=== PATIENT | female | born 1935 | race Caucasian/White ===

== ENCOUNTER 2021-01-07 14:51 | Inpatient (IN) | payer OTHER, MEDICAID ==
[~2021-01-07] VITALS: Ht 149.9 cm; Wt 49.2 kg
--- NOTE | ~2021-01-07 | CON ---
[address] [address] CONSULTATION Name: ORTIZJAY Room: [address] IN M.R.#: [id number] Admission: 01/07/21 Attend Phys: Issa Scott MD Discharge: Date of : 39 Report #: [id number] THIS REPORT FOR: cc: Temo Landers Dimitri DO ~ Khosla, Parveen K. MD DATE OF SERVICE: 01/09/2021 HISTORY OF PRESENT ILLNESS: This is an 85-year-old female patient who was evaluated by me for the stroke. The record in the computer was reviewed and it looks like the patient came to Emergency Room on 01/07/2021 with history suggestive of stroke. She has fallen and she was weak on the left side. 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 I asked her if she hit her head or not and she said no, but history is completely unreliable. Reviewing the record in the Emergency Room looks like this patient was given an aspirin in Emergency Room and she was admitted. From the record, it looks like the patient had an MRI done today along with MRA. 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 She also has a lot of chronic changes. REVIEW OF SYSTEMS: A 14-point review of system was carried out. It is difficult to tell because the patient is so dysarthric that she has virtually complete inability to express herself. She does have a history of hypertension, sepsis and apparently kidney failure. When she came in, her GFR was 47, but now it is 80. When I saw this patient, she was eating. There is some question about seizure disorder, but the patient does not tell me anything and I will try to reach the family. She denies any ENT, cardiac, respiratory, GI, , musculoskeletal, constitutional, dermatological, hematological, psychiatric, throat, allergic symptom associated with present symptomatology. PAST MEDICAL HISTORY: As described above. It is positive for seizure, but I need to talk to the family to see where we are in that regard. FAMILY HISTORY: Negative for early age stroke. SOCIAL HISTORY: As per record, she niece who checks on her, but again I need to reach them to get some more history. PHYSICAL EXAMINATION: Indicates she is alert. She is responsive. She can follow simple command, but she has ____ some dysarthria with no ability to express herself that makes difficult checking memory and fund of knowledge. 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 I cannot tell about hemianopsia. I think she can see in most of the visual [place]rence[place] [address] CONSULTATION Name: JAY ORTIZ Rabia Room: [address] IN [facility]#: [id number] Admission: 01/07/21 Attend Phys: Issa Scott MD Discharge: Date of : 39 Report #: [id number] minimum about 1/5 strength on the left upper extremity. She has very little strength in the left lower extremity. She says she can feel on both sides, but when I do position sense, she does that poorly. She does not take appropriate postures to do the position sense or tone. I tried to do the cerebellar sign. She could not cooperate. Similarly, she did not cooperate with the fundus examination. There is no meningeal sign. There is no carotid bruit. There is no thyroid mass: She is a well-built individual who does not have any dysmorphic features of eyes, ears and face. Her vision and hearing looks adequate. She does not have any edema, cyanosis or jaundice. Imagings reviewed were MRI, MRA. Her white count is 7.7. Vital signs indicated blood pressure of 191/94, respirations 16, pulse is 88, temperature is 97.4. No documented atrial fibrillation, so far. IMPRESSION: Pretty significant cerebrovascular accident in the brainstem with the vessel, especially basilar artery looks patent. It may be from the small vessel disease because she has evidence of other small vessel disease. With all I can tell, she is on aspirin and she never got any Plavix during this hospitalization and she was not on it before. I will give her a loading dose of Plavix after confirming that she did not receive any Plavix and she needs to be on a combination of aspirin and Plavix. Small vessel stroke sometime can become worse and lot of time that lead to complete paralysis before the patient can start recovering and unfortunately, this patient has bilateral stroke and she reaches that spot that will be catastrophic. Therefore, I will give her a loading dose of Plavix and I think at this stage, we just need to mainly watch her. Her sed rate is okay, her LDL is high and she is already on intensive statin therapy and main thing she will need is rehabilitation. Thank you very much for this referral. By: [id number] 29Bladimir Patel MD /nt
[~2021-01-07 14:51] MED LIST: CARVEDILOL6.25 MG PO; CATAPRES-TTS 31 EACH TRANSDERM; CLONIDINE HCL0.3 M3 PO; HYDROCODONE-AP1 EAC6 PO; IBUPROFEN 200200 M1 PO; KEFLEX250 MG PO; KEFLEX500 MG PO; NORCO 5-325 TA1 EACH PO; NORVASC2.5 MG PO; PERCOCET 5-3251 EACH PO; SENNA8.6 MG PO; [UNRECOGNIZED DRUG - REMARK] TOP
[2021-01-07 14:52] VITALS: BP 128/46
[2021-01-07 15:21] LABS: ABSOLUTE EOSINOPHILS 0.1 thou/uL (0.0-0.7); ABSOLUTE LYMPHOCYTES 1.3 thou/uL (0.8-5.3); ABSOLUTE MONOCYTES 0.6 thou/uL (0.0-1.2); ABSOLUTE NEUTROPHILS 4.4 thou/uL (1.6-8.1); BASOPHILS 0.8 %; EOSINOPHILS 0.9 %; HEMOGLOBIN 11.6 gm/dL (12.0-15.0); LYMPHOCYTES 20.2 %; MCH 29.1 pg (26.0-34.0); MCHC 33.1 g/dL (28.0-37.0); MONOCYTES 9.2 %; MPV 7.7 fl. (7.2-11.1); NUCLEATED RBCS 0 /100WBC; PLATELET COUNT* 223 thou/uL (150-400); POLYS 68.9 %; RBC 3.98 mil/uL (4.20-5.00); RDW-CV 15.2 % (10.5-14.5); WBC 6.3 thou/uL (4.0-11.0)
[2021-01-07 15:31] LABS: CALCIUM 9.1 mg/dL (8.5-10.1); CREATININE 1.1 mg/dL (0.6-1.3); POTASSIUM 3.4 mmol/L (3.5-5.1)
[2021-01-07 15:35] LABS: ALBUMIN 3.5 g/dL (3.4-5.0); PROTIME 10.7 Seconds (9.20-11.50); TOTAL BILIRUBIN 0.5 mg/dL (<0.1-1.0); TOTAL PROTEIN 7.1 g/dL (6.4-8.2)
[2021-01-07 19:29] VITALS: BP 140/84
[2021-01-08] VITALS: BP 165/107
--- NOTE | 2021-01-08 02:10 | NUR ---
PATIENT ARRIVED TO UNIT AT APPROXIMATELY 1950. PATIENT ALERT ONLY TO SELF WITH CONFUSION. PATIENT DENIES TAKING ANY MEDICATIONS AT HOME. PATIENT INITIALLY STATED THAT SHE LIVES ALONE IN AN APT BUT THEN STATES THEY SENT HER HERE [facility]. NIGHT PROGRESSED PATIENT BECAME RESTLESS AND AGITATED. PATIENT ATTEMPTED MULTIPLE TIMES TO GET UP FROM BED. PATIENT DIFFICULT TO REDIRECT. PATIENT PLACED ON 1:1 FOR SAFETY
[2021-01-08 04:00] VITALS: BP 182/92
--- NOTE | 2021-01-08 07:20 | NUR ---
CHANGE OF SHIFT REPORT GIVEN PATIENT SEEN IN ROOM AND IN BED ASLEEP ASSUMED PATIENT CARE
[2021-01-08 07:58] LABS: CHOLESTEROL 186 mg/dL (<200); HDL CHOLESTEROL 54 mg/dL (>40); LDL CHOLESTEROL 117 mg/dL (<100); TC:HDL 3.4 Ratio (Not establshd); TRIGLYCERIDE 76 mg/dL (<150); VLDL 15 mg/dL (<40)
[2021-01-08 08:00] VITALS: BP 185/90
[2021-01-08 08:09] LABS: SERUM ASSESSMENT Clear
[2021-01-08 12:00] VITALS: BP 192/90
[2021-01-08 16:00] VITALS: BP 200/94
--- NOTE | 2021-01-08 17:16 | NUR ---
DAVION ALAS REQUESTS NO CLINICAL INFORMATION BE GIVEN TO HER FRIEND SHILA (?SPELLING AND LAST NAME) [facility]. FRIEND SHILA "COACHES HER" AND SEEMS TO BE "TAKING HER MONEY." SHILA IS ALLOW TO VISIT ON SATURDAY, AND PATIENT IS ALLOWED TO TALK WITH SHILA.
[2021-01-09 00:37] VITALS: BP 185/99
--- NOTE | 2021-01-09 02:33 | NUR ---
ASSUMED CARE OF PATIENT IN 1930. PATIENT CONTINUES TO HAVE SITTER FOR SAFETY. PATIENT IS RESTLESS AND CALLS OUT RANDOMLY. PATIENT CONTINUES TO BE IMPULSIVE AND DOES NOT USE CALL LIGHT APPROPRIATELY. NIH SCORE THIS SHIFT REMAINS AN 8
[2021-01-09 04:11] LABS: CALCIUM 9.4 mg/dL (8.5-10.1); CREATININE 0.7 mg/dL (0.6-1.3); MAGNESIUM 1.9 mg/dL (1.8-2.4); POTASSIUM 3.2 mmol/L (3.5-5.1)
[2021-01-09 04:15] LABS: HEMATOCRIT 39.9 % (37.0-47.0); HEMOGLOBIN 13.2 gm/dL (12.0-15.0); MCH 28.9 pg (26.0-34.0); MCV 87.4 fL (80.0-100.0); MPV 7.7 fl. (7.2-11.1); RBC 4.57 mil/uL (4.20-5.00); WBC 7.7 thou/uL (4.0-11.0)
[2021-01-09 04:16] VITALS: BP 161/104
--- NOTE | 2021-01-09 09:39 | EKG ---
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
--- NOTE | 2021-01-09 11:33 | NUR ---
CM SPOKE TO THE PT TO DISCUSS CM ASSESSMENT. RESTING WITH EYES CLOSED AT THIS TIME. PT CURRENTLY HAS 1:1 SITTER FOR SAFETY. CM CONTACTED PT'S NIECE EVETTE TO DISCUSS CM ASSESSMENT. PT'S NIECE INFORMS THAT THE PT CURRENTLY RESIDES AT [facility] ([facility] ALONE. PT NORMALLY AMBULATES INDEPENDENTLY WITH 0 DME. PT HAS 0 HX OF HH. PT HAS PAST HX OF SNF AT [facility]. PT'S NIECE DOES ALL GROCERY SHOPPING, CASE LOADER OPERATOR, LAUNDRY, ASSIST WITH BATHING, AND PROVIDES TRANSPORTATION TO APPOINTMENTS. PT'S SON MANAGES HER FINANCES AND PAYS HER BILLS FOR HER. CM WILL REMAIN AVAILABLE TO ASSIST AND FOLLOW NEEDED.
[2021-01-09 11:37] VITALS: BP 170/99
--- NOTE | 2021-01-09 12:47 | 2DMMODE ---
[place] [address] 2 D/M-MODE ECHOCARDIOGRAM Name: ORTIZJAY Room: [address] IN .R.#: [id number] Admission: 01/07/21 Attend Phys: Issa Scott, Discharge: Date of : 39 Date of Service: 01/09/21 1247 Report #: [id number] THIS REPORT FOR: cc: Temo Landers,Temo Guzman,Prosper Locke MD [facility] ~ APPROVED REPORT Study performed: 01/09/2021 11:03:36 EXAM: Comprehensive 2D, Doppler, color-flow Echocardiogram, and bubble study Patient Location: Bedside BSA: 1.48 HR: 59 bpm BP: 161/104 mmHg Other Information Study Quality: Fair Technically limited study due to inability to position patient. Indications CVA/TIA 2D Dimensions IVSd: 14.73 (7-11mm) LVOT Diam: 17.28 (18-24mm) LVDd: 32.94 mm PWd: 8.72 (7-11mm) Ascending Ao: 26.63 (22-36mm) LVDs: 22.70 (25-40mm) Aortic Root: 26.32 mm Aortic Valve AoV Peak William.: 1.06 m/s AO Peak Gr.: 4.45 mmHg LVOT Max P.61 mmHg AO Mean Gr.: 2.58 mmHg LVOT Mean P.96 mmHg LVOT Max V: 0.95 m/s AO V2 VTI: 18.97 cm LVOT Mean V: 0.65 m/s GEMA (VTI): 2.35 cm2 LVOT V1 VTI: 19.03 cm Mitral Valve E/A Ratio: 0.43 MV Decel. Time: 231.08 ms MV E Max William.: 0.48 m/[place] [address] 2 D/M-MODE ECHOCARDIOGRAM Name: JAY ORTIZ Room: [address] IN [facility]#: [id number] Admission: 01/07/21 Attend Phys: Issa Scott, Discharge: Date of : 39 Date of Service: 01/09/21 1247 Report #: [id number] MV PHT: 67.01 ms MVA (PHT): 3.28 cm2 TDI E/Lateral E': 6.86 E/Medial E': 16.00 Medial E' William.: 0.03 m/s Lateral E' William.: 0.07 m/s Pulmonary Valve PV Peak William.: 1.12 m/s PV Peak Gr.: 5.00 mmHg Left Ventricle The left ventricle is normal size. There is normal LV segmental wall motion. There is normal left ventricular wall thickness. Left ventricular systolic function is normal. The left ventricular ejection fraction is within the normal range. LVEF is 60-65%. Grade I - abnormal relaxation pattern. Right Ventricle The right ventricle is normal size. The right ventricular systolic function is normal. Atria The left atrium size is normal. Injection of bubbles is not conclusive due to poor image quality. The right atrium size is normal. Aortic Valve The aortic valve is normal in structure. No aortic regurgitation is present. There is no aortic valvular stenosis. Mitral Valve The mitral valve is normal in structure. Trace mitral regurgitation. No evidence of mitral valve stenosis. Tricuspid Valve The tricuspid valve is normal in structure. There is no tricuspid valve regurgitation noted. Pulmonic Valve The pulmonary valve is normal in structure. There is no pulmonic valvular regurgitation. Great Vessels The aortic root is normal in size. IVC [place] [address] 2 D/M-MODE ECHOCARDIOGRAM Name: ORTIZJAY Room: [address]#: [id number] Admission: 01/07/21 Attend Phys: Issa Scott, Discharge: Date of : 39 Date of Service: 01/09/21 1247 Report #: [id number] Pericardium There is no pericardial effusion. <Conclusion> Injection of bubbles is not conclusive due to poor image quality. Left ventricular systolic function is normal. The left ventricular ejection fraction is within the normal range. <ELECTRONICALLY SIGNED> By: Prosper Whaley MD, FACC 01/09/21 1247 46 124 Prosper Whaley MD, FACC /INF
[2021-01-09 15:49] VITALS: BP 191/94
--- NOTE | 2021-01-09 19:32 | NUR ---
ASSUMED PT CARE AT 0730. PT WITH SAFETY MEASURES IN PLACE AND A SITTER. PT FORGETS SHE IS UNABLE TO AMBULATE AT THIS TIME. PT REQUIRES ASSIST OF 2 . DIET CHANGED TO PUREED AND MEDS TO BE CRUSHED. ASSESSMENT COMPLETED AND MEDICATIONS ADMINISTERED ORDERED. PT NIH 8.
[2021-01-09 20:00] VITALS: BP 188/92
[2021-01-10 00:34] VITALS: BP 171/88
--- NOTE | 2021-01-10 04:58 | NUR ---
PATIENT SLEPT WELL DURING THIS SHIFT. PT ABLE TO TAKE MEDS CRUSHED IN APPLESAUCE. PT WITH FLUIDS INFUSING IN LT FOREARM. PT IN SR ON RN [facility]. PT WITH LT SIDED FACIAL DROOP. PT IS ON ROOM AIR. PT INCONTENT OF URINE. FREQUENTLY USED ITEMS AND CALL LIGHT WITHIN REACH. SIDERAILS UPX2 AND BED ALARM ON. PT WITH 1:1 SITTER ORDERED FOR PT SAFETY.
[2021-01-10 05:17] VITALS: BP 170/89
[2021-01-10 08:49] VITALS: BP 160/75
[2021-01-10 12:00] VITALS: BP 182/85
[2021-01-10 16:00] VITALS: BP 167/77
--- NOTE | 2021-01-10 17:20 | NUR ---
PT.STILL WITH 1:1 SITTER TODAY BUT MUCH CALMER. THERAPY TRIAGED PT.TODAY. EDNA GONZALEZ/ARU EVALUATED PT.TODAY.
--- NOTE | 2021-01-10 17:46 | NUR ---
ASSUMED PT CARE AT 0730. PT IS ALERT, WITH PERIODS OF CONFUSION. PT HAD SWALLOW STUDY AND DIET CHANGED TO PUREED AND THICKENED LIQUIDS. PT TOLERATING PO MEDS WITH NECTAR THICKENED APPLE JUICE. UP WITH ASSIST X1. ASSESSED AND PT HAS NO C/O ANY DISCOMFORT OR PAIN. PT REQUESTING TO GO HOME. MEDICATIONS ADMINISTERED ORDERED. PT VISITING WITH NIECE AT THIS TIME. K+ 4.0.
[2021-01-10 19:50] VITALS: BP 187/88
[2021-01-11] VITALS (8 sets, daily range): BP systolic 137–208; BP diastolic 55–94
[2021-01-11] MEDS ORDERED: HYDRALAZINE 5050 MG PO (09:20)
[2021-01-11] MEDS ORDERED: LIPITOR40 MG PO (09:20)
[2021-01-11] MEDS ORDERED: HYDROCHLOROTHIA25 M1 PO (09:20)
[2021-01-11] MEDS ORDERED: ADULT LOW DOSE81 MG PO (09:20)
[2021-01-11] MEDS ORDERED: CLOPIDOGREL75 MG PO (09:20)
[2021-01-11] MEDS ORDERED: LISINOPRIL20 MG PO (09:20)
--- NOTE | 2021-01-11 13:32 | NUR ---
CM INFORMED DURING PRIME ROUNDING OF THE PLAN OF CARE FOR THE PT. PHYSICIAN INFORMS THAT THE PT IS MEDICALLY STABLE FOR D/C TO ARU. ARU CONSULTED AND WILL NEED TO OBTAIN INSURANCE AUTH IN ORDER TO BE ABLE TO ACCEPT PT. CM WILL REMAIN AVAILABLE TO ASSIST AND FOLLOW NEEDED.
[2021-01-12 04:37] VITALS: BP 155/86
[2021-01-12] MEDS ORDERED: CARVEDILOL12.5 MG PO (07:37)
[2021-01-12 08:00] VITALS: BP 129/70
[2021-01-12 12:23] VITALS: BP 161/82
--- NOTE | 2021-01-12 12:54 | NUR ---
CM INFORMED DURING PRIME ROUNDING OF THE PLAN OF CARE FOR THE PT. PT MEDICALLY STABLE FOR TRANSFER TO IN ARU. PT NOW OFF 1:1. ARU STARTED INSURANCE AUTH AND IS AWAITING APPROVAL. CM WILL REMAIN AVAILABLE TO ASSIST AND FOLLOW NEEDED.
[2021-01-12 16:09] VITALS: BP 110/41
[2021-01-12 23:47] VITALS: BP 137/58
[2021-01-13 04:00] VITALS: BP 120/53
[2021-01-13 08:00] VITALS: BP 128/56
[2021-01-13 10:44] LABS: HEMOGLOBIN 11.3 gm/dL (12.0-15.0); MCH 28.7 pg (26.0-34.0); MCHC 32.4 g/dL (28.0-37.0); MCV 88.4 fL (80.0-100.0); MPV 7.9 fl. (7.2-11.1); RBC 3.95 mil/uL (4.20-5.00); RDW-CV 15.4 % (10.5-14.5); WBC 7.1 thou/uL (4.0-11.0)
[2021-01-13 10:50] LABS: CALCIUM 8.9 mg/dL (8.5-10.1); CREATININE 1.3 mg/dL (0.6-1.3); POTASSIUM 3.6 mmol/L (3.5-5.1)
--- NOTE | 2021-01-13 12:06 | NUR ---
CM INFORMED DURING PRIME ROUNDING OF THE PLAN OF CARE FOR THE PT. [facility] AUTH PENDING INSURANCE AUTH. PLAN FOR PT TO TRANSFER TO INPT REHAB IF INSUARANCE AUTH IS APPROVED. CM WILL REMAIN AVAILABLE TO ASSIST AND FOLLOW NEEDED.
[2021-01-13 12:26] VITALS: BP 86/59
[2021-01-13 16:03] VITALS: BP 125/60
--- NOTE | 2021-01-13 18:59 | NUR ---
ASSUMED CARE OF PT 0700. ASSESSMENTS COMPLETED, SEE CHART FOR DETAILS. VS CHARTED, NO S/S DISTRESS. PO FLUIDS ENCOURAGED. REMAINS ON TELE MONITOR. WILL CONTINUE TO MONITOR.
[2021-01-13 20:00] VITALS: BP 137/61
[2021-01-14 00:10] VITALS: BP 125/62
[2021-01-14 04:39] LABS: HEMATOCRIT 32.3 % (37.0-47.0); HEMOGLOBIN 10.7 gm/dL (12.0-15.0); MCH 29.1 pg (26.0-34.0); MCHC 33.1 g/dL (28.0-37.0); MCV 87.8 fL (80.0-100.0); MPV 8.1 fl. (7.2-11.1); RBC 3.68 mil/uL (4.20-5.00); WBC 7.4 thou/uL (4.0-11.0)
[2021-01-14 04:51] LABS: CALCIUM 8.6 mg/dL (8.5-10.1); CREATININE 1.2 mg/dL (0.6-1.3); MAGNESIUM 1.9 mg/dL (1.8-2.4); POTASSIUM 3.3 mmol/L (3.5-5.1)
[2021-01-14 04:55] VITALS: BP 125/66
--- NOTE | 2021-01-14 06:05 | NUR ---
ASSUMED PT CARE AT APPROX. 1930. PT IS A/O TO SELF. PT HAD SOME CONFUSION THIS EVENING. PT WANTED TO MOVE TO A DIFFERENT ROOM AND GET HER CAT. PT WAS ANXIOUS AND CLIMBING OUT OF BED. MEDICATIONS ADMINISTERED PRESCRIBED FOR ANXIETY. NIH SCORE WAS 9. PT HAS LEFT SIDE WEAKNESS AND LEFT SIDED FACIAL DROOPING. PT RESTED MOST OF THE NIGHT. LABS REVIEWED. HOURLY ROUNDS COMPLETE CHARTED. CALL LIGHT WITHIN REACH. FALL PRECAUTIONS IN PLACE FOR SAFETY. WILL CONT. TO MONITOR.
[2021-01-14 09:10] VITALS: BP 116/56
[2021-01-14 11:56] VITALS: BP 83/41
--- NOTE | 2021-01-14 16:58 | NUR ---
ASSUMED PT CARE AT 0730. PT IS ALERT AND COOPERATIVE. ASSESSMENT COMPLETED. PT REQUIRES MAX ASSIST OF 1 TO BSC. PT VOICES NO CONCERNS AT THIS TIME. MEDICATIONS ADMINISTERED ORDERED. SAFETY MEASURES IN PLACE. PT NIECE HERE TO VISIT. PLAN FOR PT TO DISCHARGE TO REHAB WHEN ABLE.
[2021-01-14 20:15] VITALS: BP 114/57
[2021-01-15 00:18] VITALS: BP 113/68
[2021-01-15 05:30] VITALS: BP 118/57
--- NOTE | 2021-01-15 06:54 | NUR ---
ASSUMED PT CARE AT 1930. PT IS A/O X2. VSS. PT IS SR ON THE TELE MONITOR. PT'S NIH SCORE WAS A 9. PT HAS LEFT SIDED WEAKNESS. PT HAD A BROWN, FORMED BM. PT CONTINUES THE NECTAR THICK LIQUIDS AND PUREED DIET. PT HAS BEEN RESTING DURING THE NOC. WILL CONT. TO MONITOR. LABS REVIEWED. HOURLY ROUNDS COMPLETE CHARTED. MEDICATIONS ADMINISTERD PRESCRIBED.
[2021-01-15 09:00] VITALS: BP 107/51
[2021-01-15 12:00] VITALS: BP 110/42
[2021-01-15 16:00] VITALS: BP 115/56
--- NOTE | 2021-01-15 16:01 | NUR ---
ASSUMED PT CARE AT 0730. PT IS ALERT, COOPERATIVE AND ANSWERS QUESTIONS APPROPRIATELY.NIH IS A 9. ASSESSMENT COMPLETED AND NO CHANGE IN STATUS FROM YESTERDAY. PT UP TO BSC WITH ASSIST X1. K+ WAS 3.3 THIS AM, PROTOCOL INITIATED AND NEW LAB VALUE THIS AFTERNOON IS 3.8. SAFETY MEASURES IN PLACE. PT ABLE TO USE CALL LIGHT TO LET STAFF KNOW OF NEEDS. ROUNDING COMPLETED EVERY HOUR AND PT ASSISTED WITH REPOSITIONING Q2HR AND PRN TO PROMOTE COMFORT.
[2021-01-15 19:30] VITALS: BP 132/57
[2021-01-16 00:09] VITALS: BP 125/51
[2021-01-16 04:22] LABS: HEMATOCRIT 31.5 % (37.0-47.0); HEMOGLOBIN 10.4 gm/dL (12.0-15.0); MCH 29.3 pg (26.0-34.0); MCHC 33.1 g/dL (28.0-37.0); MCV 88.5 fL (80.0-100.0); MPV 8.1 fl. (7.2-11.1); RBC 3.56 mil/uL (4.20-5.00); RDW-CV 15.4 % (10.5-14.5); WBC 7.5 thou/uL (4.0-11.0)
[2021-01-16 04:48] LABS: CALCIUM 9.5 mg/dL (8.5-10.1); CREATININE 1.1 mg/dL (0.6-1.3); POTASSIUM 4.2 mmol/L (3.5-5.1)
[2021-01-16 04:51] VITALS: BP 157/62
--- NOTE | 2021-01-16 04:58 | NUR ---
PT SLEPT ON AND OFF THIS SHIFT. ASSESSMENT DOCUMENTED. MEDS GIVEN PER E-DEC. IV PATENT. NO REPORTS OF PAIN. FALL PRECAUTIONS IN PLACE. WILL CONTINUE WITH PLAN OF CARE.
[2021-01-16 08:00] VITALS: BP 134/83
--- NOTE | 2021-01-16 10:39 | NUR ---
ASSUMED CARE OF PATIENT THIS AM AT 0730. PATIENT IS ALERT AND ORIENTED X 2. SHE DENIES PAIN. PATIENT SET UP FOR MEALS AND ASSISTED WITH ADLS THROUGHOUT THE DAY. PLANS TO DISCHARGE TO REHAB. BED ALARM IS ON AND CALL LIGHT IS IN REACH.
--- NOTE | 2021-01-16 13:25 | NUR ---
CM INFORMED DURING PRIME ROUNDING OF THE PLAN OF CARE FOR THE PT. PLAN FOR PT TO TRANSFER TO INPT ACUTE REHAB UNIT TODAY. PT'S INSURANCE HAS APPROVED INPT REHAB. CM SPOKE TO THE PT AND PT'S NIECE/DPRICHARD ALAS AND SHE IS IN AGREEMENT WITH THIS PLAN. CM WILL REMAIN AVAILABLE TO ASSIST AND FOLLOW NEEDED.
== END 2021-01-16 11:51 | DRG 64 ==
LOC: M.ERS 14:51 → M.TBA-ER 17:03 → M.2W 17:03
PROVIDERS: Emergency Medicine Emergency Medical Services; Family Medicine; ADMIT Internal Medicine; ATTEND Internal Medicine
DX: I63.89 Other cerebral infarction (principal); G92 Toxic encephalopathy; G81.94 Hemiplegia, unspecified affecting left nondominant side; R73.03 Prediabetes; G40.909 Epilepsy, unspecified, not intractable, without status epilepticus; E87.6 Hypokalemia; R13.10 Dysphagia, unspecified; I12.9 Hypertensive chronic kidney disease with stage 1 through stage 4 chronic kidney disease, or unspecified chronic kidney disease; N18.30 Chronic kidney disease, stage 3 unspecified; Z20.822 Contact with and (suspected) exposure to COVID-19; Z90.710 Acquired absence of both cervix and uterus; Z79.899 Other long term (current) drug therapy

== ENCOUNTER 2021-01-16 11:45 | Inpatient (IN) | payer OTHER, MEDICAID ==
[~2021-01-16] VITALS: Ht 121.9 cm; Wt 49.9 kg
[~2021-01-16 11:45] MED LIST changes: +ADULT LOW DOSE81 MG PO; +CARVEDILOL12.5 MG PO; +CLOPIDOGREL75 MG PO; +HYDRALAZINE 5050 MG PO; +HYDROCHLOROTHIA25 M1 PO; +LIPITOR40 MG PO; +LISINOPRIL20 MG PO
[2021-01-16 13:49] VITALS: BP 145/67
[2021-01-16 19:00] VITALS: BP 168/72
[2021-01-17 04:47] LABS: HEMATOCRIT 32.3 % (37.0-47.0); HEMOGLOBIN 10.6 gm/dL (12.0-15.0); MCH 29.1 pg (26.0-34.0); MCHC 32.9 g/dL (28.0-37.0); MCV 88.2 fL (80.0-100.0); MPV 8.3 fl. (7.2-11.1); RBC 3.66 mil/uL (4.20-5.00); RDW-CV 15.4 % (10.5-14.5); WBC 8.5 thou/uL (4.0-11.0)
[2021-01-17 04:54] LABS: CALCIUM 8.9 mg/dL (8.5-10.1); CREATININE 1.1 mg/dL (0.6-1.3); POTASSIUM 3.9 mmol/L (3.5-5.1)
[2021-01-17 07:50] VITALS: BP 154/66
[2021-01-17 10:34] LABS: URINE BILIRUBIN NEGATIVE (Negative); URINE BLOOD TRACE (Negative); URINE CLARITY CLEAR; URINE COLOR YELLOW; URINE GLUCOSE-RANDOM NEGATIVE (Negative); URINE KETONES NEGATIVE (Negative); URINE NITRITE-REFLEX NEGATIVE (Negative); URINE PROTEIN NEGATIVE (Negative); URINE SPECIFIC GRAVITY 1.025 (1.005-1.030); URINE UROBILINOGEN 0.2 E.U./dl (0.2-1.0)
[2021-01-17 10:37] LABS: URINE LEUKOCYTES-REFLEX 3+ (Negative)
[2021-01-17 10:45] LABS: BACTERIA-REFLEX >30 Many /HPF (None Seen); CASTS None Seen /LPF (None Seen); CRYSTALS None Seen /LPF (None Seen); MUCUS 0-3 Light strn/LPF (None Seen); SQUAMOUS 0-3 Few /LPF (0-3); URINE RBC 0-2 Rare /HPF (0-2)
[2021-01-17 19:00] VITALS: BP 151/79
[2021-01-18 05:11] LABS: HEMATOCRIT 29.2 % (37.0-47.0); HEMOGLOBIN 9.9 gm/dL (12.0-15.0); MCH 29.4 pg (26.0-34.0); MCHC 33.8 g/dL (28.0-37.0); MPV 8.1 fl. (7.2-11.1); RBC 3.36 mil/uL (4.20-5.00); WBC 8.1 thou/uL (4.0-11.0)
[2021-01-18 05:19] LABS: CALCIUM 8.5 mg/dL (8.5-10.1); POTASSIUM 3.3 mmol/L (3.5-5.1)
[2021-01-18 08:00] VITALS: BP 137/63
[2021-01-18 20:20] VITALS: BP 161/70
[2021-01-19 08:19] VITALS: BP 119/61
[2021-01-19 08:52] LABS: POTASSIUM 3.3 mmol/L (3.5-5.1)
[2021-01-19 09:56] VITALS: BP 119/61
[2021-01-19 10:47] LABS: HEMATOCRIT 33.6 % (37.0-47.0); MCH 28.7 pg (26.0-34.0); MCHC 32.8 g/dL (28.0-37.0); MCV 87.4 fL (80.0-100.0); MPV 8.6 fl. (7.2-11.1); RBC 3.84 mil/uL (4.20-5.00); RDW-CV 14.9 % (10.5-14.5); WBC 8.5 thou/uL (4.0-11.0)
== END 2021-01-19 14:13 | disposition short-term general hospital (02) | DRG 56 ==
LOC: M.REH 11:45
PROVIDERS: Internal Medicine; ADMIT Physical Medicine & Rehabilitation; ATTEND Physical Medicine & Rehabilitation
DX: I69.354 Hemiplegia and hemiparesis following cerebral infarction affecting left non-dominant side (principal); G92 Toxic encephalopathy; N39.0 Urinary tract infection, site not specified; I69.322 Dysarthria following cerebral infarction; I12.9 Hypertensive chronic kidney disease with stage 1 through stage 4 chronic kidney disease, or unspecified chronic kidney disease; R33.9 Retention of urine, unspecified; G40.909 Epilepsy, unspecified, not intractable, without status epilepticus; N18.31 Chronic kidney disease, stage 3a; E87.6 Hypokalemia; R13.10 Dysphagia, unspecified; M19.90 Unspecified osteoarthritis, unspecified site; D64.9 Anemia, unspecified; E11.22 Type 2 diabetes mellitus with diabetic chronic kidney disease; Z90.710 Acquired absence of both cervix and uterus

== ENCOUNTER 2021-01-19 14:20 | Inpatient (IN) | payer OTHER, MEDICAID ==
[~2021-01-19] VITALS: Ht 119.4 cm; Wt 56.0 kg
[2021-01-19 15:00] VITALS: BP 135/60
[2021-01-19 15:23] LABS: ABSOLUTE BASOPHILS 0.1 thou/uL (0.0-0.2); ABSOLUTE EOSINOPHILS 0.1 thou/uL (0.0-0.7); ABSOLUTE LYMPHOCYTES 1.1 thou/uL (0.8-5.3); ABSOLUTE MONOCYTES 0.9 thou/uL (0.0-1.2); ABSOLUTE NEUTROPHILS 6.9 thou/uL (1.6-8.1); BASOPHILS 0.6 %; EOSINOPHILS 1.5 %; MCHC 33.3 g/dL (28.0-37.0); MONOCYTES 10.3 %; MPV 8.3 fl. (7.2-11.1); NUCLEATED RBCS 0 /100WBC; PLATELET COUNT* 279 thou/uL (150-400); POLYS 75.6 %; RBC 3.44 mil/uL (4.20-5.00); RDW-CV 15.1 % (10.5-14.5); WBC 9.1 thou/uL (4.0-11.0)
[2021-01-19 15:39] LABS: ALBUMIN 2.9 g/dL (3.4-5.0); CALCIUM 8.6 mg/dL (8.5-10.1); POTASSIUM 3.7 mmol/L (3.5-5.1); TOTAL BILIRUBIN 0.7 mg/dL (<0.1-1.0); TOTAL PROTEIN 6.8 g/dL (6.4-8.2)
--- NOTE | 2021-01-19 15:47 | EKG ---
[place] [address] ELECTROCARDIOGRAM REPORT Name: ORTIZJAY Room: [address] ADM IN [facility]#: [id number] Admission: 01/19/21 Attend Phys: Gilberto Paige Discharge: Date of : 39 Date of Service: 01/19/21 1413 Report #: [id number] THIS REPORT FOR: //name// [facility] Test Date: 2021-01-19 Test Time: 14:13:33 Pat Name: JAY ORTIZ Department: Room: [address] Gender: F Drama Therapist: : 1935 Requested By: Gilberto Paige Order Number: [id number] Frank MD: Prosper Whaley Measurements Intervals [place] Rate: 60 P: 54 SD: 200 QRS: 23 QRSD: 90 T: 57 QT: 454 QTc: 454 Interpretive Statements Sinus rhythm Compared to ECG 01/07/2021 14:58:42 No significant changes Electronically Signed On 01-19-2021 15:47:21 CDT by Prosper Whaley [email or web address] <ELECTRONICALLY SIGNED> By: Prosper Whaley MD, [facility] 01/19/21 1547 1413 1413 Prosper Whaley MD, [facility] /EPI
[2021-01-19 16:00] VITALS: BP 129/64
[2021-01-19 16:33] LABS: BE 0.5 mmol/L (-2 to +3); PCO2 33.1 mmHg (35.0-45.0); pH 7.472 (7.340-7.450)
[2021-01-19 16:38] LABS: PO2 130.3 mmHg (75.0-100.0)
[2021-01-19 17:00] VITALS: BP 120/82
[2021-01-19 18:00] VITALS: BP 148/60
[2021-01-20] VITALS (25 sets, daily range): BP systolic 102–152; BP diastolic 39–78
[2021-01-20 04:35] LABS: HEMATOCRIT 27.4 % (37.0-47.0); HEMOGLOBIN 9.3 gm/dL (12.0-15.0); MCH 29.4 pg (26.0-34.0); MCHC 34.1 g/dL (28.0-37.0); MCV 86.2 fL (80.0-100.0); RBC 3.17 mil/uL (4.20-5.00); RDW-CV 14.8 % (10.5-14.5); WBC 9.5 thou/uL (4.0-11.0)
[2021-01-20 04:59] LABS: ALBUMIN 2.5 g/dL (3.4-5.0); ALKALINE PHOSPHATASE 107 U/L (46-116); ANION GAP 7 mmol/L (7-16); BUN 29 mg/dL (7-18); CALCIUM 8.8 mg/dL (8.5-10.1); CHLORIDE 100 mmol/L (98-107); CHOLESTEROL 90 mg/dL (<200); CO2 29 mmol/L (21-32); CREATININE 1.2 mg/dL (0.6-1.3); GLUCOSE 138 mg/dL (70-99); HDL CHOLESTEROL 38 mg/dL (>40); LDL CHOLESTEROL 47 mg/dL (<100); POTASSIUM 3.8 mmol/L (3.5-5.1); SGOT 13 U/L (15-37); SGPT 14 U/L (30-65); SODIUM 136 mmol/L (136-145); TC:HDL 2.4 Ratio (Not establshd); TOTAL BILIRUBIN 0.7 mg/dL (<0.1-1.0); TOTAL PROTEIN 6.2 g/dL (6.4-8.2); TRIGLYCERIDE 29 mg/dL (<150); VLDL 6 mg/dL (<40)
[2021-01-20 05:35] LABS: BE 3.1 mmol/L (-2 to +3); PCO2 33.9 mmHg (35.0-45.0); PO2 77.4 mmHg (75.0-100.0); pH 7.502 (7.340-7.450)
[2021-01-20 05:41] LABS: SERUM ASSESSMENT CLEAR
--- NOTE | 2021-01-20 09:58 | EKG ---
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
--- NOTE | 2021-01-20 15:26 | 2DMMODE ---
[place] [address] 2 D/M-MODE ECHOCARDIOGRAM Name: JAY ORTIZ Rabia Room: [address] IN [facility]#: [id number] Admission: 01/19/21 Attend Phys: Gilberto Paige Discharge: Date of : 39 Date of Service: 01/20/21 1526 Report #: [id number] THIS REPORT FOR: cc: Temo Landers,Temo Guzman,Prosper Locke MD [facility] ~ APPROVED REPORT Study performed: 01/20/2021 13:58:12 EXAM: Limited 2D Echocardiogram Patient Location: In-Patient Room #: [facility] Status: routine BSA: 1.26 HR: 88 bpm BP: 123/51 mmHg Rhythm: NSR Other Information Study Quality: Good Indications cardiac arrest Left Ventricle The left ventricle is normal size. There is normal LV segmental wall motion. There is normal left ventricular wall thickness. The left ventricular systolic function is normal. The left ventricular ejection fraction is within the normal range. LVEF is 60-65%. Right Ventricle The right ventricle is normal size. The right ventricular systolic function is normal. Atria The left atrium size is normal. The right atrium size is normal. Aortic Valve Mild aortic valve sclerosis. Mitral Valve The mitral valve [place] [address] 2 D/M-MODE ECHOCARDIOGRAM Name: JAY ORTIZ Room: [address] IN .R.#: [id number] Admission: 01/19/21 Attend Phys: Gilberto Paige Discharge: Date of : 39 Date of Service: 01/20/21 1526 Report #: [id number] Tricuspid Valve The tricuspid valve is normal in structure. Pulmonic Valve The pulmonary valve is normal in structure. Great Vessels The aortic root is normal in size. IVC is normal in size and collapses >50% with inspiration. Pericardium There is no pericardial effusion. <Conclusion> LVEF is 60-65%. Mild aortic valve sclerosis. There is no pericardial effusion. <ELECTRONICALLY SIGNED> By: Prosper Whaley MD, FACC 01/20/21 1526 1526 25 Prosper Whaley MD, FACC /INF
[2021-01-21] VITALS (12 sets, daily range): BP systolic 95–146; BP diastolic 40–84
[2021-01-21 02:06] LABS: GLYCOHEMOGLOBIN (HGB A1C) 6.1 % (4.8-5.6)
[2021-01-21 02:47] LABS: HEMATOCRIT 29.2 % (37.0-47.0); HEMOGLOBIN 9.8 gm/dL (12.0-15.0); MCH 29.3 pg (26.0-34.0); MCHC 33.6 g/dL (28.0-37.0); MCV 87.3 fL (80.0-100.0); MPV 7.6 fl. (7.2-11.1); RBC 3.34 mil/uL (4.20-5.00); RDW-CV 14.7 % (10.5-14.5); WBC 9.5 thou/uL (4.0-11.0)
[2021-01-21 02:56] LABS: CALCIUM 9.5 mg/dL (8.5-10.1); CREATININE 1.1 mg/dL (0.6-1.3); POTASSIUM 3.5 mmol/L (3.5-5.1)
[2021-01-21] MEDS ORDERED: LEVOFLOXACIN750 MG PO (09:51)
[2021-01-22 00:07] VITALS: BP 91/48
[2021-01-22 04:31] VITALS: BP 91/44
[2021-01-22 05:52] LABS: CALCIUM 7.9 mg/dL (8.5-10.1); CREATININE 1.5 mg/dL (0.6-1.3); POTASSIUM 3.2 mmol/L (3.5-5.1)
[2021-01-22 06:04] LABS: HEMATOCRIT 26.2 % (37.0-47.0); HEMOGLOBIN 8.8 gm/dL (12.0-15.0); MCHC 33.5 g/dL (28.0-37.0); MCV 86.6 fL (80.0-100.0); RBC 3.02 mil/uL (4.20-5.00); RDW-CV 15.3 % (10.5-14.5); WBC 8.9 thou/uL (4.0-11.0)
[2021-01-22 08:00] VITALS: BP 104/52
[2021-01-22 11:45] VITALS: BP 99/45
[2021-01-22 16:00] VITALS: BP 138/60
[2021-01-22 20:30] VITALS: BP 107/58
[2021-01-23] VITALS: BP 133/59
[2021-01-23 04:00] VITALS: BP 121/47
[2021-01-23 06:01] LABS: HEMATOCRIT 26.6 % (37.0-47.0); HEMOGLOBIN 8.8 gm/dL (12.0-15.0); MCV 87.6 fL (80.0-100.0); MPV 7.6 fl. (7.2-11.1); RBC 3.03 mil/uL (4.20-5.00); RDW-CV 15.5 % (10.5-14.5)
[2021-01-23 06:24] LABS: ALBUMIN 2.3 g/dL (3.4-5.0); CALCIUM 8.6 mg/dL (8.5-10.1); CREATININE 1.3 mg/dL (0.6-1.3); POTASSIUM 4.1 mmol/L (3.5-5.1); TOTAL BILIRUBIN 0.5 mg/dL (<0.1-1.0); TOTAL PROTEIN 5.8 g/dL (6.4-8.2)
--- NOTE | 2021-01-23 11:11 | EKG ---
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 /EPI
--- NOTE | 2021-01-23 11:13 | EKG ---
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
[2021-01-23 12:00] VITALS: BP 151/62
[2021-01-24 00:35] VITALS: BP 151/71
[2021-01-24 04:58] VITALS: BP 164/76
[2021-01-24 13:41] VITALS: BP 116/62
[2021-01-24 15:51] VITALS: BP 149/63
[2021-01-24 20:00] VITALS: BP 129/57
[2021-01-25] VITALS: BP 130/62
[2021-01-25 04:00] VITALS: BP 139/97
[2021-01-25 07:47] VITALS: BP 153/62
[2021-01-25 10:04] VITALS: BP 153/62
== END 2021-01-25 17:16 | DRG 64 ==
LOC: M.ICU 14:20 → M.2W 14:20 → M.ICU 14:41 → M.2W 01-21 06:23
PROVIDERS: Internal Medicine; ADMIT Internal Medicine; ATTEND Internal Medicine
DX: I63.89 Other cerebral infarction (principal); I46.9 Cardiac arrest, cause unspecified; E43 Unspecified severe protein-calorie malnutrition; J96.01 Acute respiratory failure with hypoxia; J69.0 Pneumonitis due to inhalation of food and vomit; G92 Toxic encephalopathy; N39.0 Urinary tract infection, site not specified; I69.354 Hemiplegia and hemiparesis following cerebral infarction affecting left non-dominant side; R73.03 Prediabetes; G40.909 Epilepsy, unspecified, not intractable, without status epilepticus; R33.9 Retention of urine, unspecified; N18.31 Chronic kidney disease, stage 3a; E87.6 Hypokalemia; D64.9 Anemia, unspecified; M19.90 Unspecified osteoarthritis, unspecified site; Z68.39 Body mass index [BMI] 39.0-39.9, adult; Z90.710 Acquired absence of both cervix and uterus; Z79.01 Long term (current) use of anticoagulants; Z79.82 Long term (current) use of aspirin; Z79.899 Other long term (current) drug therapy

== ENCOUNTER 2021-01-25 15:47 | Inpatient (IN) | payer OTHER, MEDICAID ==
[~2021-01-25] VITALS: Ht 149.9 cm; Wt 50.3 kg
--- NOTE | ~2021-01-25 | EEG ---
[address] [address] EEG STUDY REPORT Name: DIANAJAY Rabia Room: [address]#: [id number] Admission: 01/25/21 Attend Phys: Dusty Mcgee MD Discharge: 02/18/21 Date of : 39 Report #: [id number] THIS REPORT FOR: cc: Temo Landers,Bladimir Tellez MD ~ DOC #: [id number] Bladimir Patel MD DATE OF SERVICE: 02/16/2021 This patient is having episode of falling. EEG was done by placing the electrode by standard 10-20 system of electrode placement. Background activity does go up to about 9 Hz and 30 microvolt. The patient goes to sleep and that is associated with bilateral slowing and vertex sharp waves. Photic stimulation is unremarkable. Throughout the record, no active epileptiform activity was noticed. IMPRESSION: This is an abnormal EEG because it is disorganized and poorly formed. That is a nonspecific abnormality which can occur with dementia, encephalopathy, effect of psychotropic medication, etc. Clinical correlation is recommended. Bladimir Patel MD PK/BRENDEN By: 1216 1246Bladimir Patel MD /reta
[~2021-01-25 15:47] MED LIST changes: +LEVOFLOXACIN750 MG PO
[2021-01-25 17:46] VITALS: BP 180/73
--- NOTE | 2021-01-25 18:44 | NUR ---
1715 PATIENT ADMITTED TO ROOM 320 FROM 214, REPORT REC'D FROM ML QUESADA RN. ALL BELONGINGS/SETHI IN PATIENT'S ROOM AND PATIENT ORIENTED TO ROOM AND UNIT. SUPPER TRAY ACCOMPANIED PATIENT TO ROOM AND IS NOW ON A PUREED DIET WITH NECTAR THICK LIQUIDS, WAS ABLE TO FEED HERSELF WITH SUPERVISION. VSS 98.6-79-20-180/73-97% ON RA. PATIENT C/O CHEST SORENESS FROM RECENT COMPRESSIONS PERFORMED ON HER DURING RECENT CARDIAC ARREST ON THIS UNIT. SOL IS PATENT WITH CLEAR DARK YELLOW URINE.
[2021-01-25 20:00] VITALS: BP 143/119
[2021-01-26 04:15] LABS: HEMATOCRIT 24.8 % (37.0-47.0); HEMOGLOBIN 8.3 gm/dL (12.0-15.0); MCH 28.9 pg (26.0-34.0); MCHC 33.4 g/dL (28.0-37.0); MCV 86.5 fL (80.0-100.0); MPV 6.9 fl. (7.2-11.1); RBC 2.86 mil/uL (4.20-5.00); WBC 6.9 thou/uL (4.0-11.0)
[2021-01-26 04:35] LABS: CALCIUM 8.5 mg/dL (8.5-10.1); CREATININE 0.7 mg/dL (0.6-1.3); POTASSIUM 3.6 mmol/L (3.5-5.1)
--- NOTE | 2021-01-26 05:30 | NUR ---
ASSUMED PT CARE AT 1930. ASSESSMENT COMPLETED CHARTED. ABLE TO MAKE NEEDS KNOWN. PT RESTING IN BED ALL NIGHT. C/O MILD CHEST PAIN, WORSE WHEN TOUCHING AREA, AND GAVE PRN TYLENOL PER EMAR. SOL DRAINING YELLOW URINE, PT STATED SHE WAS GOING TO PULL THE SOL, EDUCATED PT AND THEN REDIRECTED. PT RESTING IN BED WATCHING TV AT THIS TIME. WILL CONTINUE TO MONITOR.
--- NOTE | 2021-01-26 08:06 | NUR ---
Pt discharged to ARU to room 320 yesterday
[2021-01-26 08:34] VITALS: BP 153/97
--- NOTE | 2021-01-26 15:32 | NUR ---
INITIAL ASSESSMENT: PATIENT ADMITTED TO THE [facility] ON 01/25/21 WITH A DIAGNOSIS OF BILATERAL CVA. PRIOR TO ADMIT PT RESIDED AT [facility] ALONE. PT'S NIECE EVETTE IS HER SOURCE OF SUPPORT AND PRIOR TO ADMIT SHE HAD ASSISTED THE PT WITH GROCERY SHOPPING, CHORES, LAUNDRY, AND BATHING. PT USED 0 DME PRIOR TO ADMIT. PT'S BROTHER USUALLY HANDLES HER FINANCES AND PAYS HER BILLS. PT HAS 0 HX OF HH. PT HAS PAST HX OF SNF AT [facility]. CM RE-ORINTED THE PT AND HER NIECE TO THE [facility] AND PROCESSES, RESIDENTS RIGHTS INFO, TEAM CONFRENCE, AND TO THE ROLE OF CM. CM WILL REMAIN AVAILABLE TO ASSIST AND FOLLOW NEEDED.
--- NOTE | 2021-01-26 18:19 | NUR ---
ASSESSMENT COMPLETED DOCUMENTED THIS MORNING. PATIENT UP WITH THERAPY AND PARTICIPATING SLOWLY. SOL CATHETER IS PATENT AND DRAINING CLEAR DARK YELLOW URINE. 2 325MG ACETAMINOPHEN GIVEN THIS MORNING FOR CHEST DISCOMFORT R/T RECENT COMPRESSIONS. WITH RELIEF NOTED. IS TOLERATING PUREED DIET AND NECTAR LIQUIDS WELL WITH ONLY SET UP REQUIRED AT MEALS. DAVION...EVETTE IN TO VISIT THIS EVENING.
[2021-01-26 19:55] VITALS: BP 158/69
--- NOTE | 2021-01-27 05:01 | NUR ---
ASSUMED CARES AT 1920. ALERT AND ORIENTED. FORGETFUL AND CONFUSED AT TIMES. LEFT SIDED WEAKNESS. PILLS CRUSHED IN PUDDING WITH NECTAR THICK LIQUIDS. SOL CATHETER DD YELLOW URINE. SLEPT MOST OF THE NIGHT. CALL LIGHT IN REACH AND BED ALARM ON.
[2021-01-27 07:20] VITALS: BP 159/83
[2021-01-27 07:30] VITALS: BP 159/69
--- NOTE | 2021-01-27 10:45 | NUR ---
Nutrition: Pt admitted to rehab. Wt is in usual range, 108-115#, current wt 109#. Admitted with CVA. Pt confused, forgetful. Pureed, nectar diet. Tolerating diet, needs meal set up. BG 115, alb 2.3, prealb 15.4. H/o DM, arthritis, dysphagia. Meds noted. No nutrition concerns at this time. Will follow weekly for po intake, wt, labs. Mild to low risk.
--- NOTE | 2021-01-27 16:33 | NUR ---
PATIENT COMPLETED THERAPIES THIS SHIFT ORDERED. UP WITH MAX ASSISTANCE, GAIT BELT. PATIENT GIVEN SCHED STOOL SOFTNER AND PRN MOM THIS SHIFT. PATIENT UP TO BSC AND ATTEMPTED BM WAS UNSUCCESSFUL. NO COMPLAINTS OF PAIN. PILLS CRUSHED IN APPLESAUCE. ST DID TRIAL PATIENT ON THIN LIQUID TODAY BUT PATIENT FAILED. SOL DRAINING YELLOW URINE WITHOUT DIFFICULTY. PATIENT ALERT AND ORIENTED BUT IS CONFUSED.
[2021-01-27 20:00] VITALS: BP 150/61
--- NOTE | 2021-01-28 05:00 | NUR ---
ASSUMED PT CARE AT 1930. ASSESSMENT COMPLETED CHARTED. ABLE TO MAKE NEEDS KNOWN. YELLS OUT INSTEAD OF USING CALL LIGHT EVEN WHEN EDUCATED AND WITH ORIENTATION GUIDE TO HELP HER. UP WITH MAX ASSIST. NO C/O PAIN OR DISCOMFORT. RESTING IN BED COMFORTABLY MOST OF THE NIGHT AFTER HAVING VERY HARD BM. WILL CONTINUE TO MONITOR.
[2021-01-28 07:58] VITALS: BP 120/61
[2021-01-28 14:49] LABS: HEMATOCRIT 29.6 % (37.0-47.0); HEMOGLOBIN 9.7 gm/dL (12.0-15.0); MCH 28.9 pg (26.0-34.0); MCV 87.7 fL (80.0-100.0); MPV 7.1 fl. (7.2-11.1); RBC 3.37 mil/uL (4.20-5.00); RDW-CV 15.3 % (10.5-14.5); WBC 8.6 thou/uL (4.0-11.0)
--- NOTE | 2021-01-28 15:48 | NUR ---
PT CONTINUES TO WORK WITH PT/OT/ST. PT CONINUES TO MAKE PROGRESS TOWARD GOALS. CM TO F/U WITH PT AND FAMILY TO DISCUSS ANY QUESTIONS OR CONCERNS ON SATURDAY. CM WILL REMAIN AVAILABLE TO ASSIST AND FOLLOW NEED.
--- NOTE | 2021-01-28 18:22 | NUR ---
ASSESSMENT COMPLETED DOCUMENTED THIS MORNING. PATIENT UP AND PARTICIPATING WITH THERAPY, SITTING IN RECLINER AT BEDSIDE AND THEN NAPPING IN BED. IS ABLE TO FEED HERSELF WITH RIGHT HAND WITH A PUREED DIET, AND DEMONSTRATES A GOOD APPETITE. TAKING FLUIDS WELL. NO ISSUES OR CHANGES IN CONDITION NOTED.
[2021-01-28 19:50] VITALS: BP 122/53
[2021-01-29 04:45] LABS: HEMATOCRIT 28.1 % (37.0-47.0); HEMOGLOBIN 9.4 gm/dL (12.0-15.0); MCH 29.5 pg (26.0-34.0); MCHC 33.5 g/dL (28.0-37.0); MCV 88.1 fL (80.0-100.0); MPV 7.3 fl. (7.2-11.1); RBC 3.19 mil/uL (4.20-5.00); RDW-CV 15.1 % (10.5-14.5); WBC 7.1 thou/uL (4.0-11.0)
--- NOTE | 2021-01-29 06:45 | NUR ---
ASSUMED PT CARE AT 1930. ASSESSMENT COMPLETED CHARTED. ABLE TO MAKE NEEDS KNOWN. PT SLEPT WELL ALL NIGHT. NO YELLING OUT. NO C/O PAIN OR DISCOMFORT. SOL DRAINING YELLOW URINE. WILL CONTINUE TO MONITOR.
[2021-01-29 08:40] VITALS: BP 132/50
[2021-01-29 20:00] VITALS: BP 112/64
--- NOTE | 2021-01-30 05:55 | NUR ---
ASSUMED PT CARE AT 1930. ASSESSMENT COMPLETED CHARTED. ABLE TO MAKE NEEDS KNOWN. PT RESTING IN BED ALL NIGHT WITH NO ISSUES DURING THE NIGHT. SOL DRAINING YELLOW URINE. WILL CONTINUE TO MONITOR.
[2021-01-30 07:30] VITALS: BP 171/69
--- NOTE | 2021-01-30 16:05 | NUR ---
PATIENT COMPLETED THERAPIES ORDERED. UP WITH MAX ASSISTANCE, GAIT BELT. PATIENT GIVEN PRN MOM THIS AM, IF NO BM WILL GIVE PRN SUPPOSITORY. SOL DRAINING YELLOW URINE. PATIENT C/O CHEST PAIN THIS AM STATING HER BELT WAS TOO TIGHT. DR. DARLING NOTIFIED DURING ROUNDING AND EKG AND TROP COMPLETE AND NEGATIVE. AFTER TROPONIN DRAWN AT THIS TIME, AWAITING RESULTS. PILLS TAKEN CRUSHED IN APPLESAUCE WITHOUT DIFFICULTY.
--- NOTE | 2021-01-30 16:36 | NUR ---
CM SPOKE TO THE PT AND HER NIECE TO DISCUSS ANY QUESTIONS OR CONCERNS THAT THEY MAY HAVE FOR THIS WEEKS MEETING. PT HAS NO QUESTIONS OR CONCERNS. PT'S NIECE IS JUST ANXIOUS TO HEAR THE UPDATE ON HER PROGRESS. CM TO F/U WITH PT AND HER NIECE AFTER THE MEETING.
[2021-01-30 19:00] VITALS: BP 134/68
--- NOTE | 2021-01-31 04:38 | NUR ---
ASSUMED PT CARE AT 1930. PT ORIENTED TO SELF, ABLE TO MAKE NEEDS KNOWN. UP WITH MAX ASSIST OF TWO TO COMMODE TO VOID. STOOL X1 THIS SHIFT. PT DENIED PAIN. TAKES PILLS CRUSHED IN APPLESAUCE. SLEPT WELL OVERNIGHT. CALL LIGHT IN REACH, BED ALARM ON FOR SAFETY.
[2021-01-31 07:25] VITALS: BP 147/56
--- NOTE | 2021-01-31 14:10 | EKG ---
[place] [address] ELECTROCARDIOGRAM REPORT Name: ORTIZJAY Room: [address] ADM IN ..#: [id number] Admission: 01/25/21 Attend Phys: Dusty Mcgee MD Discharge: Date of : 39 Date of Service: 01/30/21 0944 Report #: [id number] THIS REPORT FOR: //name// [facility] Test Date: 2021-01-30 Test Time: 09:44:59 Pat Name: JAY ORTIZ Department: Room: [address] Gender: F Telescope Maintenance: ENRIQUETA : 1935 Requested By: Dusty Mcgee Order Number: [id number] Reading MD: Sulaiman Gilbert Measurements Intervals [place] Rate: 58 P: 5 IL: 217 QRS: -8 QRSD: 86 T: 47 QT: 435 QTc: 428 Interpretive Statements Sinus rhythm Borderline prolonged IL interval Left ventricular hypertrophy, by voltage Baseline wander in lead(s) I,III,aVL Compared to ECG 01/22/2021 11:01:09 Left ventricular hypertrophy now present Electronically Signed On 01-31-2021 14:10:31 CDT by Sulaiman Gilbert [email or web address] <ELECTRONICALLY SIGNED> By: Sulaiman Gilbert MD, [facility] 01/31/21 1410 0944 0944 Sulaiman Gilbert MD, [facility] /EPI
--- NOTE | 2021-01-31 16:02 | NUR ---
PT WORKED WITH THERAPIES. UP TO CHAIR WITH MAX ASSIST X2. SOL TO DD. DENIES PAIN. FALL PRECAUTIONS IN PLACE. CALL LIGHT IN REACH.
[2021-01-31 19:00] VITALS: BP 138/52
--- NOTE | 2021-01-31 19:55 | NUR ---
RESTING IN BED. CALL LIGHT WITHIN REACH. ALERT AND ORIENTED TO NAME. VERY FORGETFUL.
[2021-02-01 04:11] LABS: HEMATOCRIT 29.4 % (37.0-47.0); HEMOGLOBIN 9.8 gm/dL (12.0-15.0); MCH 29.2 pg (26.0-34.0); MCHC 33.2 g/dL (28.0-37.0); MCV 87.9 fL (80.0-100.0); MPV 6.9 fl. (7.2-11.1); RBC 3.34 mil/uL (4.20-5.00); RDW-CV 15.4 % (10.5-14.5)
[2021-02-01 04:21] LABS: CALCIUM 9.6 mg/dL (8.5-10.1); POTASSIUM 3.6 mmol/L (3.5-5.1)
--- NOTE | 2021-02-01 05:02 | NUR ---
RESTED QUIETLY MOST OF THE NIGHT. TRIED TO GET OUT OF BED X ONE DURING THE NIGHT WITHOUT ASSISTANCE. HOURLY ROUNDING IN PROGRESS.
[2021-02-01 07:28] VITALS: BP 133/64
--- NOTE | 2021-02-01 14:31 | NUR ---
UROLOGY CONSULT CALLED TO CECILIO MENJIVAR. ORDER TO DO VOIDING TRIAL TOMARROW AM.
--- NOTE | 2021-02-01 16:33 | NUR ---
TEAM CONFRENCE MEETING HELD TODAY. CM AND PHYSICIAN INFORMED PT OF THE MEETING AND PLAN TO RE-TEAM AND HAVE THE PT REMAIN ON THE UNIT FOR ANOTHER WEEK TO CONTINUE THERAPIES. CM ATTEMPTED TO CONTACT PT'S NIECE/DPOA TO DISUCSS THIS. NO ANSWER, BUT CM LEFT A VOICEMAIL FOR HER TO RETURN CALL. PT PROGRESSING TOWARDS GOALS, BUT BARRIERS ARE, POOR INSIGHT, MEMORY, REASONING, AND DECREASED BALANCE AND LEFT LE STRENGTH. CM WILL REMAIN AVAILABLE TO ASSIST AND FOLLOW NEEDED.
--- NOTE | 2021-02-01 16:53 | NUR ---
PT REFUSED SHOWER. WORKED WITH SOME THERAPIES. SWETA MONTIEL DD. CONTINUES TO BE UNABLE TO RECOGNIZE PEOPLE WHO HAVE BEEN CARING FOR HER ALL SHIFT. OFFERING TO GIVE HER SETIH TO EVERYONE THAT ENTERS HER ROOM. UP WITH ASSIST X2, GAIT BELT, AND WALKER. UROLOGY CONSULTED. SEE PREVIOUS NOTE. FALL PRECAUTIONS IN PLACE. CALL LIGHT IN REACH.
[2021-02-01 20:00] VITALS: BP 91/71
[2021-02-02 08:07] VITALS: BP 126/54
--- NOTE | 2021-02-02 17:48 | NUR ---
PT REMAINS ORIENTED TO SELF, BUT FORGETFUL. PT PARTICIPATED IN THERAPY TODAY. PT SAT UP IN THE RECLINER MOST OF THE DAY WELL. NO BM NOTED TODAY. PT UP WITH 2 PERSON ASSIST AND GAIT BELT. PT ON Q [address] WILL CONTINUE TO MONITOR.
[2021-02-02 20:00] VITALS: BP 168/54
--- NOTE | 2021-02-03 06:20 | NUR ---
ASSUMED PT CARE AT 1930. ASSESSMENT COMPLETED CHARTED. ABLE TO MAKE NEEDS KNOWN. PT SLEEPING IN BED ALL NIGHT WITH NO ISSUES NOTED. SOL DRAINING YELLOW URINE. NO C/O PAIN OR DISCOMFORT. WILL CONTINUE TO MONITOR.
[2021-02-03 08:00] VITALS: BP 154/63
[2021-02-03 20:10] VITALS: BP 148/59
--- NOTE | 2021-02-03 20:10 | NUR ---
RESTING IN BED AND WATCHING TV. ALERT AND ORIENTED TO NAME. CONFUSED AND KEEPS SAYING SHE NEEDS TO GET OUT OF BED SO SHE CAN GET IN HER OWN BED. ATTEMPTS TO REORIENTATE PERSON TO PLACE UNSUCCESSFUL. SOL TO DEPENDENT DARAINGE WITH YELLOW URINE. TOOK MEDICATION CRUSHED WITH APPLESAUCE FOLLOWED WITH NECTAR THICKENED APPLE JUICE. CALL LIGHT WITHIN REACH.
--- NOTE | 2021-02-04 04:43 | NUR ---
RESTED ON/OFF. GAVE TYLENOL FOR COMPLAINT OF BACK PAIN WITH RELIEF. HOURLY ROUNDING IN PROGRESS.
[2021-02-04 08:00] VITALS: BP 123/53
[2021-02-04 13:43] LABS: HEMATOCRIT 29.8 % (37.0-47.0); HEMOGLOBIN 9.8 gm/dL (12.0-15.0); MCH 28.9 pg (26.0-34.0); MCHC 32.7 g/dL (28.0-37.0); MCV 88.3 fL (80.0-100.0); MPV 6.7 fl. (7.2-11.1); RBC 3.37 mil/uL (4.20-5.00); RDW-CV 15.3 % (10.5-14.5); WBC 5.8 thou/uL (4.0-11.0)
[2021-02-04 13:53] LABS: CREATININE 1.1 mg/dL (0.6-1.3); POTASSIUM 3.7 mmol/L (3.5-5.1)
--- NOTE | 2021-02-04 14:30 | NUR ---
PT CONTINUES TO WORK WITH PT/OT/ST AND CONTINUES TO MAKE PROGRESS TOWARDS GOALS. CM WILL CHECK-IN WITH PT A AND HER NIECE ON SATURDAY TO DISCUSS ANY QUESTIONS OR CONCERNS THAT THEY MAY HAVE FOR THIS WEEKS MEETING.
--- NOTE | 2021-02-04 16:20 | NUR ---
PT VERY CONFUSED AND FORGETFUL. REQUIRES FREQUENT REDIRECTION FROM GATTING UP WITH OUT ASSIST. CHAIR ALARM ON. PT PUT IN WHEELCHAIR AND PUSHED AROUND THE UNIT. UP TO BSC WITH MAX ASSIST X2 MULTIPLE TIMES THIS SHIFT WITH LITTLE OUTPUT. BLADDER SCAN READING 46. FALL PRECAUTIONS IN PLACE. CALL LIGHT IN REACH.
--- NOTE | 2021-02-04 16:58 | NUR ---
BLADDER SCAN READING 119.
[2021-02-04 19:00] VITALS: BP 106/68
--- NOTE | 2021-02-04 20:30 | NUR ---
SITTING UP IN RECLINER. HAS SET CHAIR ALARM OFF MULTIPLE TIMES TRYING TO GET TO BEDSIDE COMMODE BY HERSELF. REMINDED PATIENT TO USE HER CALL LIGHT TO CALL FOR ASSISTANCE. PATIENT STATES SHE DOESN'T NEED ASSISTANCE THAT SHE CAN WALK BY HERSELF. UP WITH MOD TO MAX ASSIST OF TWO, GAITBELT, CUES, WALKER. UNSTEADY AND WEAK. TYLENOL GIVEN FOR COMPLAINT OF RIB PAIN. TOOK MEDICATIONS CRUSHED IN APPLESAUCE FOLLOWED WITH NECTAR THICKENEN APPLE JUICE.
--- NOTE | 2021-02-05 05:29 | NUR ---
UP X 2 DURING THE NIGHT TO THE BEDSIDE COMMODE. ONLY VOIDS ABOUT 50 ML AT A TIME. AT 0220 BLADDER SCAN SHOWED 182 ML RESIDUAL. NO FURTHER COMPLAINT OF PAIN. HOURLY ROUNDING IN PROGRESS.
[2021-02-05 07:31] VITALS: BP 116/57
--- NOTE | 2021-02-05 16:29 | NUR ---
PT CONFUSED, FORGETFUL, AND IMPULSIVE. BELIEVES THAT SHE CAN GET UP UNASSISTED AND NOT FALL. SETS CHAIR ALARM OFF FREQUENTLY. UP TO BSC FREQUENTLY AND URINATES SMALL AMOUNTS. BLADDER SCAN 113 AND 79. UP WITH MAX ASSIST X2 WITH GAIT BELT AND WALKER. FALL PRECAUTIONS IN PLACE. CALL LIGHT IN REACH. PT DOES NOT USE CALL LIGHT. SHE YELLS OUT FOR ASSISTANCE.
[2021-02-05 20:00] VITALS: BP 125/53
--- NOTE | 2021-02-06 06:41 | NUR ---
ASSUMED PT CARE AT 1930. ASSESSMENT COMPLETED CHARTED. ABLE TO MAKE NEEDS KNOWN. UP WITH MAX ASSIST. NO C/O PAIN OR DISCOMFORT. RESTING IN BED ALL NIGHT. WILL CONTINUE TO MONITOR.
[2021-02-06 07:33] VITALS: BP 110/55
--- NOTE | 2021-02-06 16:12 | NUR ---
CM CHECK-IN: PT HAS NON QUESTIONS OR CONCERNS AT THIS TIME. PT'S NIECE HAS NO QUESTIONS OR CONCERNS PT'S NIECE HAS BOUGHT SHOES FOR PT TO BRING TOMORROW. PT NIECE MAY NEED FAMILY TRAIINING PRIOR TO D/C. CM WILL REMAIN AVAILABLE TO ASSIST AND FOLLOW NEEDED.
--- NOTE | 2021-02-06 16:12 | NUR ---
PT WORKED WITH THERAPIES. UP WITH ASSIST X1, WALKER, AND GAIT BELT. CONFUSED AND VERY FORGETFUL. MOM GIVEN FOR CONSTIPATION. NO RESULTS. PT GETS UP TO COMMODE VERY FREQUENTLY. URINATES SMALL AMOUNTS. BLADDER SCAN 76. DR GOLDSTEIN NOTIFIED OF FREQUENCY AND LOW OUTPUT. PT REFUSES TO DRINK THICKENED FLUIDS. FALL PRECAUTIONS IN PLACE. CALL LIGHT IN REACH BUT PT YELLS OUT FOR HELP. PT EDUCATED NUMOROUS TIMES ON HOW TO USE THE CALL LIGHT.
[2021-02-06 19:00] VITALS: BP 129/56
--- NOTE | 2021-02-07 06:35 | NUR ---
ASSUMED PT CARE AT 1930. ASSESSMENT COMPLETED CHARTED. ABLE TO MAKE NEEDS KNOWN. PT RESTING IN BED MOST OF THE NIGHT. NO C/O PAIN OR DISCOMFORT. UP WITH MAX ASSIST TO BSC. WILL CONTINUE TO MONITOR.
[2021-02-07 08:00] VITALS: BP 138/64
[2021-02-07 20:00] VITALS: BP 122/59
[2021-02-08 05:33] LABS: HEMOGLOBIN 9.2 gm/dL (12.0-15.0); MCH 28.9 pg (26.0-34.0); MCHC 32.8 g/dL (28.0-37.0); MCV 88.1 fL (80.0-100.0); MPV 7.2 fl. (7.2-11.1); RBC 3.17 mil/uL (4.20-5.00); RDW-CV 15.1 % (10.5-14.5); WBC 5.6 thou/uL (4.0-11.0)
[2021-02-08 05:44] LABS: CALCIUM 8.9 mg/dL (8.5-10.1); CREATININE 1.1 mg/dL (0.6-1.3); POTASSIUM 3.2 mmol/L (3.5-5.1)
--- NOTE | 2021-02-08 06:41 | NUR ---
ASSUMED PT CARE AT 1930. ASSESSMENT COMPLETED CHARTED. ABLE TO MAKE NEEDS KNOWN. UP WITH MAX ASSIST TO BSC. NO C/O PAIN OR DISCOMFORT. RESTING IN BED ALL NIGHT. NO ISSUES NOTED THIS SHIFT. FORGETFUL AND PLEASENTLY CONFUSED. WILL CONTINUE TO MONITOR.
[2021-02-08 08:00] VITALS: BP 134/60
[2021-02-08 19:00] VITALS: BP 130/79
--- NOTE | 2021-02-09 05:07 | NUR ---
ASSUMED PT CARE AT 1930. PT ALERT AND ORIENTED TO SELF, FORGETFUL. PT INSITING SHE WANTED TO GO OUTSIDE AND LEAVE DURING INITIAL ASSESSMENT. PT UP TO BSC WITH MAX ASSIST TO VOID. DENIED PAIN. TYLENOL AT HS. PT SLEPT WELL OVERNIGHT. CALL LIGHT IN REACH, BED ALARM ON FOR SAFETY. HOURLY ROUNDING IN PROGRESS, WILL CONTINUE TO MONITOR.
[2021-02-09 08:29] VITALS: BP 128/82
[2021-02-09 19:45] VITALS: BP 149/68
--- NOTE | 2021-02-10 05:09 | NUR ---
ASSUMED PT CARE AT 1930. PT ALERT AND ORIENTED TO SELF, FORGETFUL. PT SITTING UP IN RECLINER AT SHIFT CHANGE. KEPT GETTING OUT OF RECLINER REFUSING TO GO TO BED, INSISTING SHE WANTED TO GO TO HER APARTMENT. DENIED PAIN. EVENTUALLY TRANSFERRED TO BED. UP TO BEDSIDE COMMODE X3 WITH ASSIST OF TWO TO VOID. TYLENOL AT HS. PT SLEPT WELL OVERNIGHT. CALL LIGHT IN REACH, BED ALARM ON FOR SAFETY. HOURLY ROUNDING IN PROGRESS, WILL CONTINUE TO MONITOR.
[2021-02-10 07:30] VITALS: BP 147/63
--- NOTE | 2021-02-10 13:47 | NUR ---
AM ASSESSMENT AND VITAL SIGNS COMPLETED DOCUMENTED. PT IS ALERT, CONFUSED AND VERY FORGETFUL. PT REQUIRES MOD ASSIST WITH ALL ACTIVITIES, VERY POOR INSIGHT. FALL PRECAUTIONS AND HOURLY ROUNDING CONTINUE.
--- NOTE | 2021-02-10 16:50 | NUR ---
TEAM CONFRENCE MEETING HELD SATURDAY. PLAN TO RE-TEAM AND HAVE THE PT REMAIN IN THE UNIT FOR ANOTHER WEEK TO CONTINUE THERAPIES. PT'S NIECE TO HAVE FAMILY TRAINING TO ASSESS ABILITY TO ASSIST PT AT HOME AT D/C. PT PROGRSSING TOWARDS GOALS, BUT BARRIERS ARE INSIGHT, JUDGEMENT, MEMORY, AND SAFETY. CM WILL REMAIN AVAILABLE TO ASSIST AND FOLLOW NEEDED.
[2021-02-10 19:50] VITALS: BP 145/79
--- NOTE | 2021-02-10 22:51 | NUR ---
ASSUMED CARE AT 1915. PATIENT IN BED. TAKES PILLS CRUSHED WTIH APPLESAUCE. UP TO BSC MULTIPLE TIMES WITH VARYING OUTPUT. UP WITH MAX ASSIST OF TWO FOR SAFETY. PATIENT HAD USED BSC, BUT PATIENT DEMANDED TO VOID PER TOILET ADDITIONALLY. STATES SHE VOIDED IN TOILET, BUT UNABLE TO DETERMINE HOW MUCH IF AT ALL. RETURNED TO BED. BLADDER SCANNED, 330 ML. WILL CONTINUE TO MONITOR OUTPUT/PVR. HOURLY ROUNDS CONTINUE. BED ALARM ON. CALL LITE IN REACH.
--- NOTE | 2021-02-11 06:09 | NUR ---
SLEPT FOR A FEW HOURS TOTAL. HAS BEEN VOIDING BETTER BY GOING TO TOILET PER W/C COMPARED TO USING BSC, EVEN THOUGH BSC SEAT IS PLACED OVER TOILET TO PROVIDE A SLIGHT RISE AND HAND RAILS. VOIDED 200 ML THE LAST VOIDING. HAS C/O LESS ABOUT NEEDING TO VOID NIGHT PROGRESSED. PATIENT STILL CALLS LOUDLY, "HELLO" OFTEN. FREQUENT ATTEMPTS TO REORIENT PATIENT CONTINUE. STILL UP WITH MAX ASSIST, LT ARM WEAK, HAS TROUBLE RISING FROM LYING POSITION AND NEEDS MAX ASSIST TO COME TO SITTING POSITION. NO C/O PAIN. HOURLY ROUNDS CONTINUE. BED ALARM ON. CALL LITE IN REACH.
[2021-02-11 07:22] LABS: CALCIUM 8.9 mg/dL (8.5-10.1); CREATININE 0.8 mg/dL (0.6-1.3)
[2021-02-11 08:00] VITALS: BP 129/52
--- NOTE | 2021-02-11 15:56 | NUR ---
PT HAS HAD A FALL, SHE STOOD UP AND CHAIR ALARM WAS GOING OFF, TOM BISHOP RAN INTO THE ROOM AND THE PT HIT THE OBT AND SAT ON THE FLOOR. PT HAD UA SENT TO LAB TODAY. PT POTASSUIM WAS LOW AT 3.0, ORDERS RECEIVED TO GIVE EXTRA POTASSUIM. PT HAS BEEN STANDING UP ALL DAY AFTER BEING TOLD SHE CAN NOT WALK YET DUE TO HER STROKE. PT HAS STATED SHE JUST WANTS TO SO SHE CAN BE WITH HER HUSBANB. WILL CONTINUE TO MONITOR PLAN OF CARE.
[2021-02-11 17:13] LABS: URINE BILIRUBIN NEGATIVE (Negative); URINE BLOOD NEGATIVE (Negative); URINE CLARITY CLEAR; URINE COLOR YELLOW; URINE GLUCOSE-RANDOM NEGATIVE (Negative); URINE KETONES NEGATIVE (Negative); URINE LEUKOCYTES-REFLEX NEGATIVE (Negative); URINE NITRITE-REFLEX NEGATIVE (Negative); URINE PROTEIN NEGATIVE (Negative); URINE SPECIFIC GRAVITY 1.015 (1.005-1.030); URINE UROBILINOGEN 0.2 E.U./dl (0.2-1.0)
--- NOTE | 2021-02-11 17:59 | NUR ---
NEW ORDERS RECEIVED FROM DR. QUINTANA. PSYCHIATRIC MD. CALLED AND TALKED WITH DR. ZPEEDA WHO IS BLEACH BOILER PULLER THIS PM FOR DR. LOTT. HE OKAY THE MEDICATIONS CHANGES. WILL CONTINUE TO MONITOR BHARATI OF CARE.
[2021-02-11 19:47] VITALS: BP 116/61
--- NOTE | 2021-02-12 00:20 | NUR ---
ASSUMED CARE AT 1915. PATIENT RESTING IN RECLINER CONVERSING WITH SITTER. PATIENT COOPERATIVE WITH CARES. UP TO TOILET VIA W/C WITH MAX ASSIST, GAIT BELT. UNABLE TO VOID BEFORE GETTING NEW HS MEDS. SINCE GETTING MEDS, PATIENT HAS BEEN SLEEPING SOUNDLY. SITTER PRESENT IN ROOM. TAKES PILLS CRUSHED IN APPLESAUCE. NO FURTHER C/O SI. NO C/O PAIN. HOURLY ROUNDS CONTINUE BY RN. CALL LITE IN REACH. BED ALARM ON.
--- NOTE | 2021-02-12 06:39 | NUR ---
SLEPT SOUNDLY THROUGH THE NIGHT AFTER ABOUT 2100. NO APPARENT DISTRESS, NO C/O PAIN. SITTER IN ROOM CONSTANTLY THIS SHIFT. WAS CONTINENT THROUGH SHIFT. HAS NOT C/O NEEDING TO VOID. HOURLY ROUNDS BY RN CONTINUE. BED ALARM ON. CALL LITE IN REACH.
--- NOTE | 2021-02-12 06:52 | NUR ---
0700 SCHEDULED DOSE OF LEXAPRO HELD AT THIS TIME DUE TO PATIENT BECAUSE SHE IS SLEEPING SOUNDLY. DAY SHIFT NURSE NOTIFIED. WILL GIVE THIS DOSE WITH DAY SHIFT 0900 MEDS.
[2021-02-12 08:00] VITALS: BP 96/41
[2021-02-12 08:41] LABS: ABSOLUTE EOSINOPHILS 0.1 thou/uL (0.0-0.7); ABSOLUTE LYMPHOCYTES 1.4 thou/uL (0.8-5.3); ABSOLUTE MONOCYTES 0.6 thou/uL (0.0-1.2); ABSOLUTE NEUTROPHILS 5.1 thou/uL (1.6-8.1); BASOPHILS 0.4 %; HEMATOCRIT 28.3 % (37.0-47.0); HEMOGLOBIN 9.3 gm/dL (12.0-15.0); LYMPHOCYTES 18.5 %; MCH 28.7 pg (26.0-34.0); MCHC 32.8 g/dL (28.0-37.0); MCV 87.4 fL (80.0-100.0); MONOCYTES 8.8 %; MPV 7.2 fl. (7.2-11.1); NUCLEATED RBCS 0 /100WBC; PLATELET COUNT* 157 thou/uL (150-400); POLYS 70.3 %; RBC 3.24 mil/uL (4.20-5.00); RDW-CV 15.1 % (10.5-14.5); WBC 7.3 thou/uL (4.0-11.0)
[2021-02-12 11:30] LABS: CREATININE 1.1 mg/dL (0.6-1.3); POTASSIUM 3.8 mmol/L (3.5-5.1)
--- NOTE | 2021-02-12 13:03 | NUR ---
PT WAS FOUND WITH EYES CLOSED SITTING IN HER RECLINER. IT WAS VERY HARD TO GET PT TO WAKE UP OR EVEN OPEN HER EYES. RAPID CALLED DR. LOTT HERE ALONG WITH N[facility]SING [facility] [employer], RT CAME AND LEFT WHEN FOUND OUT PT WAS BREATHING ON HER OWN AND SATING 99-100% ON ROOM AIR. SALINE LOCK STARTED WITH NS AT 250CC/HR BLOOD PRESSURE COMING UP SLOWLY. AT THE BEGINNING IT WAS 67/30 NOW UP TO 97/64. WILL CONTINUE TO MONITOR PT CLOSELY.
--- NOTE | 2021-02-12 15:56 | NUR ---
PT IS FEELING BETTER SINCE HER BOLUS OF FLUIDS WAS GIVEN. PT IS MORE ALERT AND ASKING TO GET UP AND GO TO THE BATHROOM TO VOID. VSS AFEBRILE. WILL CONTINUE TO MONITOR PLAN OF CARE.
[2021-02-12 19:43] VITALS: BP 158/71
--- NOTE | 2021-02-13 00:45 | NUR ---
ASSUMED CARE AT 1914. PATIENT RESTING IN BED. UP WITH TWO FOR SAFETY, GAIT BELT, STAND PIVOT TO W/C THEN TO TOILET. VOIDED NICKO URINE AND HAD A VERY SMALL STOOL. HS MEDS GIVEN. C/O NEEDING TO VOID TWICE MORE, UNABLE TO VOID. LAST TIME WAS ABOUT 2344. DURING THAT EFFORT PATIENT WAS SLEEPY, AND LESS ABLE TO ASSIST WITH TRANSFERS. NOW PLAN TO USE BEDPAN FOR ELIMINATION FOR SAFETY. TAKES PILLS CRUSHED WITH APPLESAUCE. HOURLY ROUNDS CONTINUE. BED ALARM ON. CALL LITE IN REACH.
--- NOTE | 2021-02-13 05:40 | NUR ---
SLEPT MUCH OF THE SHIFT. DID WAKE UP KNOWING THAT SHE NEEDED TO VOID. STILL VERY DROWSY. FOUND INCONTINENT OF URINE AND STOOL, SKIN CARE DONE. NOW ON BEDPAN TO VOID. NO C/O PAIN. HOURLY ROUNDS CONTINUE. BED ALARM ON. CALL LITE IN REACH.
[2021-02-13 06:58] LABS: ABSOLUTE EOSINOPHILS 0.1 thou/uL (0.0-0.7); ABSOLUTE LYMPHOCYTES 0.9 thou/uL (0.8-5.3); ABSOLUTE MONOCYTES 0.5 thou/uL (0.0-1.2); ABSOLUTE NEUTROPHILS 6.3 thou/uL (1.6-8.1); BASOPHILS 0.4 %; EOSINOPHILS 0.7 %; HEMATOCRIT 25.1 % (37.0-47.0); HEMOGLOBIN 8.2 gm/dL (12.0-15.0); LYMPHOCYTES 11.9 %; MCH 28.8 pg (26.0-34.0); MCHC 32.7 g/dL (28.0-37.0); MCV 88.1 fL (80.0-100.0); MONOCYTES 6.9 %; MPV 6.8 fl. (7.2-11.1); NUCLEATED RBCS 0 /100WBC; PLATELET COUNT* 144 thou/uL (150-400); POLYS 80.1 %; RBC 2.85 mil/uL (4.20-5.00); RDW-CV 15.1 % (10.5-14.5); WBC 7.8 thou/uL (4.0-11.0)
[2021-02-13 08:00] VITALS: BP 107/40
--- NOTE | 2021-02-13 13:18 | NUR ---
[facility] requested that CM speak to family about admission to SNU later this week. Spoke to Niece, Meeta Jalloh [phone]. Pt has been to [facility] in past, niece going to tour facility, by Saturday, to assure herself of this choice since new ownership with [facility] Also left [facility] Blue Book and SNU list in patients room for her, when she visits after work today.
--- NOTE | 2021-02-13 13:55 | NUR ---
AM ASSESSMENT AND VITAL SIGNS COMPLETED DOCUMENTED. PT WAS DROWSY RHIS AM SO 0900 RISPERADONE WAS NOT GIVEN. AT THIS TIME SHE IS NEARLY BACK TO BASELINE. PT CONTINUES TO BE IMPULSIVE AND REQUIRES FREQUENT OBSERVATION. PT REQUIRES ASSISTANCE OF TWO FOR TRANSFERS FOR SAFETY. FALL PRECAUTIONS AND HOURLY ROUNDING CONTINUE.
[2021-02-13 19:00] VITALS: BP 160/74
--- NOTE | 2021-02-14 05:06 | NUR ---
ASSUMED CARES AT 1920. ALERT AND ORIENTED BUT FORGETFUL. IMPULSIVE AT TIMES. DENIED ANY PAIN. LEFT SIDE WEAKNESS. MAX ASSIST X 2 PERSON. GAIT BELT AND WALKER. UP TO BSC. PILLS CRUSHED IN APPLESAUCE WITH NECTAR THICK LIQUIDS. SLEPT VERY WELL WITH NO ISSUES. CALL LIGHT IN REACH AND BED ALARM ON.
[2021-02-14 07:30] VITALS: BP 119/44
[2021-02-14 07:51] LABS: ABSOLUTE EOSINOPHILS 0.1 thou/uL (0.0-0.7); ABSOLUTE LYMPHOCYTES 1.1 thou/uL (0.8-5.3); ABSOLUTE MONOCYTES 0.5 thou/uL (0.0-1.2); ABSOLUTE NEUTROPHILS 3.8 thou/uL (1.6-8.1); BASOPHILS 0.5 %; EOSINOPHILS 2.3 %; LYMPHOCYTES 19.6 %; MCH 28.9 pg (26.0-34.0); MCHC 33.2 g/dL (28.0-37.0); MCV 87.1 fL (80.0-100.0); MONOCYTES 9.3 %; MPV 7.2 fl. (7.2-11.1); NUCLEATED RBCS 0 /100WBC; PLATELET COUNT* 152 thou/uL (150-400); POLYS 68.3 %; RBC 2.75 mil/uL (4.20-5.00); RDW-CV 15.4 % (10.5-14.5); WBC 5.5 thou/uL (4.0-11.0)
--- NOTE | 2021-02-14 10:19 | NUR ---
JOMAR F/U WITH EVETTE RE: SNF CHOICES. EVETTE WOULD LIKE REFERRALS SENT TO [facility]. IN THE MEANTIME EVETTE PLANS TO REVIEW THE FACILITIES. ALSO JOMAR FAXED RESOURCE LIST TO EVETTE AT [phone] (f). [facility] TO FAX REFERRALS TO SNFs.
--- NOTE | 2021-02-14 10:59 | NUR ---
FAXED REFERRAL PACKET TO [facility] ([phone]) [facility] ([phone]) [facility] ([phone]) JOMAR TO CONTINUE TO FOLLOW FOR D/C PLANNING.
[2021-02-14 16:09] VITALS: BP 158/72
--- NOTE | 2021-02-14 17:44 | NUR ---
PATIENT HAS REMAINED A&OX2-3 THIS SHIFT, HAS BEEN PLEASANT AND COOPERATIVE WITH CARES. PATIENT HAS DENIED ANY PAIN. PATIENT UP X 1-2 ASSIST TO BSC, VERY WEAK. MEDICATIONS ADMINISTERED ORDERED, CRUSHED IN PUDDING, AND PATIENT CONTINUES TO BE ON NECTAR THICKENED LIQUIDS. PATIENT HAS BEEN UP IN RECLINER MOST OF SHIFT. CHAIR/BED ALARM ON FOR SAFETY. CALL LIGHT AND FREQUENTLY USED ITEMS WITHIN REACH.
[2021-02-14 19:00] VITALS: BP 166/72
--- NOTE | 2021-02-15 04:46 | NUR ---
ASSUMED CARES AT 1920. ALERT AND ORIENTED BUT FORGETFUL AND CONFUSED. IMPULSIVE AT TIMES. DENIED ANY PAIN. TOOK PILLS CRUSHED IN APPLESAUCE. NECTAR THICK LIQUIDS. MAX ASSIST X 2 PERSON. SLEPT WELL. CALL LIGHT IN REACH AND BED ALARM ON.
[2021-02-15 05:34] LABS: HEMATOCRIT 24.4 % (37.0-47.0); MCH 28.8 pg (26.0-34.0); MCHC 32.9 g/dL (28.0-37.0); MCV 87.6 fL (80.0-100.0); RBC 2.79 mil/uL (4.20-5.00); RDW-CV 15.6 % (10.5-14.5); WBC 4.8 thou/uL (4.0-11.0)
[2021-02-15 05:46] LABS: CALCIUM 8.6 mg/dL (8.5-10.1); CREATININE 0.9 mg/dL (0.6-1.3); POTASSIUM 3.6 mmol/L (3.5-5.1)
[2021-02-15 08:00] VITALS: BP 126/46
--- NOTE | 2021-02-15 14:04 | EKG ---
[place] [address] ELECTROCARDIOGRAM REPORT Name: DIANAJAY Room: [address] ADM IN [facility].#: [id number] Admission: 01/25/21 Attend Phys: Dusty Mcgee MD Discharge: Date of : 39 Date of Service: 02/15/21 1341 Report #: [id number] THIS REPORT FOR: //name// [facility] Test Date: 2021-02-15 Test Time: 13:41:43 Pat Name: JAY ORTIZ Department: Room: [address] Gender: F Change Manager: : 1935 Requested By: Dusty Mcgee Order Number: [id number] Reading MD: Prosper Whaley Measurements Intervals [place] Rate: 73 P: 57 [place]: 210 QRS: 47 QRSD: 90 T: 56 QT: 401 QTc: 442 Interpretive Statements Sinus rhythm Low voltage, precordial leads Compared to ECG 01/30/2021 09:44:59 Low QRS voltage now present Left ventricular hypertrophy no longer present Electronically Signed On 02-15-2021 14:04:38 CDT by Prosper Whaley [email or web address] <ELECTRONICALLY SIGNED> By: Prosper Whaley MD, [facility] 02/15/21 1404 1341 1341 Prosper Whaley MD, [facility] /EPI
--- NOTE | 2021-02-15 15:53 | NUR ---
PT WORKING WITH OT AND WOULD NOT TALK TO THEM HALF WAY THROUGH THE SESSION, COULD NOT STAND UP OR HELP PULL HER PANTS UP, THIS SORTER OPERATOR CALLED IN TO SEE PT AND GET VS BP 115/60, HR 70, OX SATURATION 100% ON ROOM AIR. SPOKE WITH DR. DARLING HE SAID TO CALL A RAPID RESPONSE POSSIBLE STROKE WAS HAPPENING.RR CALLED DR. LOTT HERE AND SPOKE TO DAVION ALAS THAT WAS IN THE ROOM WITH THE PATIENT. NEUROLOGY CONSULTED. DR. HARRELL HERE TO SEE PT. DR FOUNTAIN WILL ORDER A EEG FOR HER FOR TOMORROW. VSS AFEBRILE. WILL CONTINUE TO MONITOR PLAN OF CARE. PT WILL NOT BE DISCHARGING UNTIL MEDICALLY STABLE.
--- NOTE | 2021-02-15 16:44 | NUR ---
PT IS DOING AND ACTING MORE NORMAL THIS EVENING. PT VOIDED A LARGE AMOUT THIS AFTERNOON 500CC OF CLEAR YELLOW URINE. VSS AFEBRILE. PT WALKING BETTER AND HELPING PULL PANTS UP. WILL CONTINUE TO MONITOR PLAN OF CARE.
[2021-02-15 19:55] VITALS: BP 147/69
--- NOTE | 2021-02-16 06:35 | NUR ---
ASSUMED CARES AT 1920. ALERT. FORGETFUL AND CONFUSED. DENIED ANY PAIN. TOOK PILLS CRUSHED IN APPLESAUCE WITH NECTAR THICK LIQUIDS. MAX ASSIST WITH 2 PERSON. WEAK AND NEEDS MUCH CUEING WITH TRANSFERS. UP TO BSC. PT DID NOT VOID OVERNIGHT. AT 0630, BLADDER SCAN SHOWED 350 CC. WILL CONTINUE ATTEMPTS TO VOID. SLEPT WELL OTHERWISE. CALL LIGHT IN REACH AND BED ALARM ON.
[2021-02-16 10:08] VITALS: BP 103/56
--- NOTE | 2021-02-16 13:31 | NUR ---
AM ASSESSMENT AND VITAL SIGNS COMPLETED DOCUMENTED. PT CONTINUES TO WORK WITH PT, OT AND ST BUT LEVEL OF PARTICIPATION VARIES. PT FELL THIS MORNING AT 0945 WHEN SHE STOOD UP FROM RECLINER WITHOUT STAFF PRESENT. CHAIR ALARM WAS PROPERLY POSITIONED UNDER HER AND WAS CONNECTED TO ALARM. PT'S GALO AND WERE NOTIFIED. CT OF THE HEAD WAS DONE WITH NO ACUTE FINDINGS. PT WILL HAVE CLOSE SUPERVISION. TELE PSYCH CONTACTED TO FOLLOW UP ON PREVIOUS EVALUATION.
--- NOTE | 2021-02-16 15:59 | NUR ---
[employer]AM [employer] MEETING HELD SATURDAY. PT AND PT'S NIECE INFORMED OF PLAN FOR THE PT TO D/C TO SNF WHEN MEDICALLY STABLE. PT'S NIECE IN AGREEMENT WITH THIS PLAN AND HAD CHOSEN [facility], [facility], AND [facility] HER SNF CHOICES. HOWEVER ALL OF THESE FACILITIES HAVE DECLINED PT DT BEHAVIORS AND REQUIRING 1:1 SITTER (AGITATION, CONFUSION, AND MULTIPLE FALLS WHILE INPT) AND INABILITY TO MEET PT'S NEEDS. PT'S NIECE INFORMS OF ADDITIONAL SNF CHOICE OF [facility]. HOWEVER AT THIS TIME PT REQUIRES TELE PSYCH CONSULT FOR POSSIBLE RECOMMENDATION OF INPT [facility] TO ASSESS PT'S NEED FOR MEDICATION ADJUSTMENT AND CARE. CM TO F/U WITH PT'S NIECE AFTER TELE PSYCH EVAL IS CONPLETED AND RECOMMENDATIONS ARE MADE. CM WILL REMAIN AVAILABLE TO ASSIST AND FOLLOW NEEDED.
[2021-02-16 20:30] VITALS: BP 166/78
--- NOTE | 2021-02-17 00:59 | NUR ---
[facility] AT 1915. PATIENT RESTING IN RECLINER. TAKES PILLS CRUSHED IN APPLESAUCE, NECTAR THICK LIQUIDS. DENIES PAIN. ATTEMPTED TO VOID PER TOILET (VIA W/C) BEFORE GOING TO BED, UNABLE TO. BLADDER SCANNED, 247 ML. ASSISTED TO BED, UP WITH MAX ASSIST, GAIT BELT, STAND PIVOT. SLEEPING AT PRESENT. CLOSE OBSERVATION. PATIENT ROOM NEAR NURSE'S STATION. TURNS SELF. NO C/O PAIN. HOURLY ROUNDS CONTINUE. BED ALARM ON. CALL LITE IN REACH.
--- NOTE | 2021-02-17 06:44 | NUR ---
SLEPT WELL THROUGH NIGHT. AWAKE NOW, BUT GROGGY. TOOK AM MED. CLOSE OBSERVATION CONTINUES. NO C/O PAIN. BRUISE ON LT CHIN INCREASING IN COLOR. PATIENT HAS PRE-EXISTING LT FACIAL DROOP. HOURLY ROUNDS CONTINUE. BED ALARM ON. CALL LITE IN REACH.
[2021-02-17 07:30] VITALS: BP 112/48
[2021-02-17 11:46] LABS: ALBUMIN 2.6 g/dL (3.4-5.0); CALCIUM 8.6 mg/dL (8.5-10.1); CREATININE 1.1 mg/dL (0.6-1.3); TOTAL BILIRUBIN 0.6 mg/dL (<0.1-1.0); TOTAL PROTEIN 5.9 g/dL (6.4-8.2)
--- NOTE | 2021-02-17 13:35 | NUR ---
AM ASSESSMENT AND VITAL SIGNS COMPLETED DOCUMENTED. PT HAS BEEN MORE ALERT TODAY, ABLE TO PARTICIPATE WITH THERAPY AND NURSING STAFF. PT C/O PAIN IN HER LEFT FOOT, XRAY DONE AND THERE WERE NO ACUTE FINDINGS. TELE PSYCH RECOMMENDS A [facility] DISPOSITION WHEN READY TO DISCHARGE FROM REHAB UNIT. ALL FALL AND SAFETY INTERVENTIONS ARE IN PLACE TO HOPEFULLY PREVENT ANY FURTHER FALLS OR INJURIES.
[2021-02-17 19:50] VITALS: BP 131/60
[2021-02-18 06:02] LABS: ABSOLUTE EOSINOPHILS 0.1 thou/uL (0.0-0.7); ABSOLUTE LYMPHOCYTES 1.4 thou/uL (0.8-5.3); ABSOLUTE MONOCYTES 0.6 thou/uL (0.0-1.2); ABSOLUTE NEUTROPHILS 3.8 thou/uL (1.6-8.1); BASOPHILS 0.5 %; EOSINOPHILS 1.9 %; HEMATOCRIT 23.2 % (37.0-47.0); HEMOGLOBIN 7.7 gm/dL (12.0-15.0); LYMPHOCYTES 22.9 %; MCH 29.1 pg (26.0-34.0); MCHC 33.1 g/dL (28.0-37.0); MCV 87.7 fL (80.0-100.0); MONOCYTES 10.1 %; MPV 6.7 fl. (7.2-11.1); NUCLEATED RBCS 0 /100WBC; PLATELET COUNT* 177 thou/uL (150-400); POLYS 64.6 %; RBC 2.65 mil/uL (4.20-5.00); RDW-CV 15.7 % (10.5-14.5); WBC 5.9 thou/uL (4.0-11.0)
[2021-02-18 09:45] VITALS: BP 149/59
--- NOTE | 2021-02-18 16:19 | NUR ---
[address] [facility] NURSE JENNY. SHE WAS NOTIFIED OF MOST RECENT ASSESSMENT,V/S ABNORMAL LABS AND RECENT HX. 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 SHE WAS NOTIFIED OF NECTAR LIQUIDS AND PUREE DIET. IV D/C WITHOUT DIFFICULTY. 1620 AMBULANCE CALLED FOR TRANSPORT.
[2021-02-18 16:23] VITALS: BP 170/70
[2021-02-18 16:39] VITALS: BP 170/70
--- NOTE | 2021-02-18 17:25 | NUR ---
PLAN OF CARE: CM INFORMED OF THE PLAN TO INITIATE TRANSFER FOR PT TO INPT [facility] PER TELE PSYCH CONSULT RECOMMENDAITONS. CM SPOKE TO [facility] TO INFORM OF REFERRAL. [facility] ACCEPTED PT. CM INFORMED PT'S BROTHER AND NIECE OF ALL OF THE ABOVE INFO AND PROVIDED CONTACT INFO FOR [facility]. PT'S BROTHER AND NIECE IN AGREEMENT WITH THE PLAN. TRANSPORT FORM FAXED TO [facility] NON-EMERGENT TRANSPORT. RN INFORMED OF THE NEED TO CALL [facility] WHEN READY TO TRANSFER PT. PT WILL NEED TO BE TRANSPORTED TO [facility] ER. RN INFORMED. CM WILL REMAIN AVAILABLE TO ASSIST AND FOLLOW NEEDED. [facility] PHONE: [phone]
--- NOTE | 2021-02-18 17:34 | NUR ---
AMBULANCE HERE AT 1640 TO MESH CUTTER PATIENT. PATIENT IN NO ACUTE DISTRESS.
== END 2021-02-18 16:40 | DRG 56 ==
LOC: M.REH 15:47
PROVIDERS: Family Medicine; Internal Medicine; ADMIT Physical Medicine & Rehabilitation; ATTEND Physical Medicine & Rehabilitation
DX: I69.354 Hemiplegia and hemiparesis following cerebral infarction affecting left non-dominant side (principal); I63.9 Cerebral infarction, unspecified; I46.9 Cardiac arrest, cause unspecified; G92 Toxic encephalopathy; N39.0 Urinary tract infection, site not specified; R33.9 Retention of urine, unspecified; D63.1 Anemia in chronic kidney disease; I12.9 Hypertensive chronic kidney disease with stage 1 through stage 4 chronic kidney disease, or unspecified chronic kidney disease; R13.10 Dysphagia, unspecified; N18.31 Chronic kidney disease, stage 3a; M19.90 Unspecified osteoarthritis, unspecified site; E11.22 Type 2 diabetes mellitus with diabetic chronic kidney disease; R41.2 Retrograde amnesia; F01.50 Vascular dementia, unspecified severity, without behavioral disturbance, psychotic disturbance, mood disturbance, and anxiety